=== PATIENT | male | born 1955 | race Hispanic/Latino ===

== ENCOUNTER 2016-10-13 10:13 | Inpatient (IN) | payer MEDICAID ==
--- NOTE | 2016-10-13 11:08 | C.PDOC ---
History Of Present Illness 61 y/o male pmhx anxiety, bipolar disorder, depression, presents to the ED with complains of worsening depression and SI. Pt also reports inability to sleep for several days. Pt denies suicidal plan or any other complaints at this time. Admits to heroin use. Time Seen by Provider: 10/13/16 10:36 Chief Complaint (Nursing): Psychiatric Evaluation History Per: Patient History/Exam Limitations: no limitations Onset/Duration Of Symptoms: Days Current Symptoms Are (Timing): Worse Modifying Factor(s): Narcotics Severity: Moderate Associated Symptoms: Depression, Suicidal Thoughts. denies: Suicidal Plan Involuntary Hold By: None Recent travel outside of the [place]: No Past Medical History Reviewed: Historical Data, Nursing Documentation, Vital Signs - Medical History PMH: Anxiety, Bipolar Disorder, Depression Denies: HIV (denies but is in the chart) - [facility] Procedures DETOXIFICATION SERVICES FOR SUBSTANCE ABUSE TREATMENT (09/16/16) GROUP PLASTICS PATTERNMAKER FOR SUBSTANCE ABUSE TREATMENT, PSYCHOEDUCATION (05/08/16) GROUP PSYCHOTHERAPY (05/31/15) INDIV PLASTICS PATTERNMAKER FOR SUBSTANCE ABUSE, COGNITIVE BEHAVIORAL (09/16/16) INDIV PSYCHOTHERAPY FOR SUBSTANCE ABUSE TREATMENT, SUPPORT (09/16/16) MEDS MGMT FOR SUBSTANCE ABUSE TREATMENT, METHADONE MAINT (07/08/15) Family History: States: Unknown Family Hx - Social History Hx Alcohol Use: Yes Hx Substance Use: Yes - Immunization History Hx Tetanus Toxoid Vaccination: No Hx Influenza Vaccination: No Hx Pneumococcal Vaccination: No Review Of Systems Except As Marked, All Systems Reviewed And Found Negative. Constitutional: Negative for: Fever Psych: Positive for: Depression, Suicidal ideation Physical Exam - Physical Exam Appears: Non-toxic, No Acute Distress Skin: Warm, Dry, No Rash Head: Atraumatic, Normacephalic Eye(s): bilateral: Normal Inspection Neck: Normal ROM Chest: Symmetrical Cardiovascular: Rhythm Regular, No Murmur Respiratory: Normal Breath Sounds, No Rales, No Rhonchi, No Wheezing Extremity: Bilateral: Atraumatic, Normal Color And Temperature, Normal ROM Neurological/Psych: Oriented x3, Normal Speech, Other (depressed affect) ED Course And Treatment - Laboratory Results Result Diagrams: 10/13/16 11:25 10/13/16 11:25 Lab Interpretation: No Acute Changes Medical Decision Making Medical Decision Making: Plan: * labs * UA * CRISIS evaluation Progress: Labs ordered and reviewed. In my clinical judgment patient is medically cleared and stable for psychiatric admission. cemetery workers supervisor contacted for evaluation. As per CW patient is to be admitted. Disposition - Disposition Disposition: HOSPITALIZED Disposition Time: 12:51 Condition: STABLE - POA Present On Arrival: None - Clinical Impression Clinical Impression: Major depressive disorder Decision To Admit - Pt Status Changed To: Hospital Disposition Of: Inpatient - Admit Certification Admit to Inpatient:: After my assessment, the patient will require hospitalization for at least two midnights. This is because of the severity of symptoms shown, intensity of services needed, and/or the medical risk in this patient being treated as an outpatient. - InPatient: Physician Admission Certification: I certify that this patient requires 2 or more midnights of care for the following reason:: Patient to be admitted to psych floor under Dr Schaffer service for MDD - . Bed Request Type: Psychiatry Admitting Physician: Rachelle Schaffer Patient Diagnosis: Major depressive disorder
[2016-10-13 11:31] LABS: BASO # 0.1 K/uL (0.0-0.2); BASO % 0.9 % (0.0-2.0); EOS # 0.3 K/uL (0.0-0.7); EOS % 4.9 % (0.0-4.0); HEMATOCRIT 42.7 % (35.0-51.0); LYMPH # 1.7 K/uL (1.0-4.3); LYMPH % 25.3 % (20.0-40.0); MEAN CORPUSCULAR HEMOGLOBIN 29.2 pg (27.0-31.0); MEAN PLATELET VOLUME 6.9 fL (7.2-11.7); MONO # 0.5 K/uL (0.0-0.8); MONO % 8.3 % (0.0-10.0); RED CELL DISTRIBUTION WIDTH 15.3 % (11.5-14.5); WHITE BLOOD COUNT 6.6 K/uL (4.8-10.8)
[2016-10-13 11:39] LABS: MEAN CELL VOLUME 86.1 fL (80.0-94.0)
[2016-10-13 11:44] LABS: CHLORIDE 100 mmol/L (98-107)
[2016-10-13 11:45] LABS: POTASSIUM 3.7 mmol/L (3.6-5.2); SODIUM 141 mmol/L (132-148)
[2016-10-13 11:47] LABS: ALB/GLOB RATIO 1.4 (1.0-2.1); ALKALINE PHOSPHATASE 75 U/L (38-126); AST/SGOT 21 U/L (17-59); BILIRUBIN,TOTAL 0.4 mg/dL (0.2-1.3); BLOOD UREA NITROGEN 17 mg/dL (9-20); CARBON DIOXIDE 29 mmol/L (22-30); GFR AFRICAN-AMERICAN > 60; TOTAL PROTEIN 6.9 g/dL (6.3-8.3)
[2016-10-13 11:48] LABS: ALCOHOL SERUM < 10 mg/dl (0-10); ALT/SGPT 31 U/L (21-72); CALCIUM 8.7 mg/dl (8.6-10.4); GLUCOSE,RANDOM 96 mg/dL (75-110)
[2016-10-13 11:48] LABS: RBC URINE 61 /hpf (0-3); URINE BILIRUBIN NEGATIVE (NEGATIVE); URINE BLOOD 3+ (NEGATIVE); URINE COLOR Yellow (YELLOW); URINE GLUCOSE (UA) NORMAL (Normal); URINE KETONE NEGATIVE (NEGATIVE); URINE LEUKOCYTE ESTERASE NEG Leu/uL (Negative); URINE PROTEIN NEGATIVE (NEGATIVE); URINE UROBILINOGEN NORMAL mg/dL (0.2-1.0); WBC URINE 2 /hpf (0-5)
[2016-10-13 12:52] VITALS: O2SAT 96
--- NOTE | 2016-10-13 15:34 | PCM.PSYCH ---
Initial Psychiatric Evaluation - Initial Psychiatric Evaluation Type of Admission: Voluntary Legal Status: Capacity Chief Complaint (in patient's own words): "I just wasn't feeling well" History of Present Illness and Precipitating Events: Pt seen, chart reviewed, case discussed with team. Pt is a 61yo M single, unemployed, lives alone w/ past psychiatric history significant for the MDD w/o psychotic features, KEVIN, etoh use d/o, opiate use d/o, benzodiazepine use d/o. The pt was recently seen at for these issues and was discharged to [facility] for continued outpt treatment for his dependence, however was unable to complete treatment. The pt stated that he didn't feel as if the program was the right program for him and felt that the 30day mediation free was too much for him. The pt during that time was complaining of a lack of sleep, increasing anxiety, and irritability. The pt reportedly relapsed two days ago on 2mg of xanax and used 8mg suboxone that he purchased of the street. He stated that the suboxone helped him sleep but feels that he got very depressed from it and worries he maybe withdrawing from it. He however appears calm but reserved and seems to have a very depressed affect, he appears well kempt and does not look to be suffering any overt signs of withdrawal. The pt currently reports suicidal ideation and denies any homicidal ideation or any auditory or visual hallucinations. Psych: as per HPI PMH:denies other medical condition PSH: denies Hospitalization: multiple for psychiatric problems on record Meds:Lexaprro 10mg QD, Nerontin 300mg TID, Trazodone 100mg qhs, Vistaril 25mg BID Allergies: NKDA FamHx:denies significant family history Social: Denies nicotine and alcohol, admits to using xanax and suboxone. Current Medications: Active Medications Generic Name Dose Route Start Last Admin Trade Name Freq PRN Reason Stop Dose Admin Clonidine HCl 0.1 mg 10/13/16 15:29 Catapres PO Q6 PRN Allergy symptoms Diphenhydramine HCl 50 mg 10/13/16 14:50 Benadryl PO Q6 PRN Extra Pyramidal Symptoms Escitalopram Oxalate 10 mg 10/14/16 10:00 Lexapro PO DAILY MARLA Gabapentin 300 mg 10/13/16 18:00 Neurontin PO TID MARLA Lorazepam 1 mg 10/13/16 15:14 10/13/16 15:19 Ativan PO 1 mg Q6 PRN Administration Agitation Pneumococcal Polyvalent Vaccine 0.5 ml 10/16/16 10:00 Pneumovax 23 Vaccine IM 10/16/16 10:01 .ONCE ONE Trazodone HCl 100 mg 10/13/16 14:49 Desyrel PO HS PRN Sleep Past Psychiatric History - Past Psychiatric History Previous Treatment History: Inpatient Pertinent Medical Hx (Current Medical&Sleep Prob, Allergies): Allergies Allergy/AdvReac Type Severity Reaction Status Date / Time No Known Allergies Allergy Verified 10/13/16 10:28 Hydroxyzine Pamoate [Vistaril] 25 mg PO BID PRN 04/23/16 Escitalopram [Lexapro] 10 mg PO DAILY #0 tab 04/28/16 Gabapentin [Neurontin] 300 mg PO TID #0 cap 04/28/16 traZODone [Desyrel] 100 mg PO HS PRN #0 tab 04/28/16 Review of Systems - Neurological Neurological: UNREMARKABLE - Psychiatric Psychiatric: Abnormal Sleep Pattern, Anxiety, Depression, Irritability. absent : Auditory Hallucinations, Change in Appetite, Hallucinations, Homicidal Ideation, Suicidal Ideation, Visual Hallucinations, Tactile Hallucinations Mental Status Examination - Personal Presentation Personal Presentation: Looks older than stated age - Affect Affect: Depressed - Motor Activity Motor Activity: Calm - Reliability in Providing Information Reliability in Providing Information: Good - Speech Speech: Organized - Mood Mood: Depressed - Formal Thought Process Formal Thought Process: No Impairment - Obsessions/Compulsions Obsessions: No Compulsions: No - Cognitive Functions Orientation: Person, Place, Situation, Time Sensorium: Alert Attention/Concentration: Attentive Abstract Thinking: [place] Estimate of Intelligence: Average Judgement: Intact, as evidence by: Insight regarding need for hospitalization Memory: Recent intact, as evidence by: Ability to recall events of the day, Remote intact, as evidenced by: Ability to recall historical events - Risk Risk: Withdrawal - Limitations Limitations: Living alone DSM 5 DX - DSM 5 DSM 5 Diagnosis: 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 Opiate use disorder severe Opiate withdrawal Sedative/hypnotic use disorder moderate - Recommended/Plan of Treatment Treatment Recommendations and Plan of Treatment: 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
--- NOTE | 2016-10-14 19:14 | PCM.PYCHPN ---
Psychiatric Progress Note - Psychiatric Progress Note Patient seen today, length of contact: 15 min Patient Chief Complaint: I m withdrawing Problems Identified/Issues Discussed: Patient seen and evaluated, chart reviewed and discussed with the nurse. Patient reports depressed mood, poor sleep and poor appetite. He remained isolated and withdrawn. He still reports withdrawal symptoms including bone pains, anxiety, headaches and sweating. However he remained calm and cooperative. He is taking medication and denies any side effects. Supportive therapy and psychoeducation were given Medication Change: Yes (Methadone taper) Medical Record Reviewed: Yes Mental Status Examination - Cognitive Function Orientation: Person, Place, Situation, Time Memory: Intact Attention: WNL Concentration: Poor Association: WNL Fund of Knowledge: Poor - Mood Mood: Depressed - Affect Affect: Depressed - Speech Speech: Soft - Formal Thought Process Formal Thought Process: No Impairment - Suicidal Ideation Suicidal Ideation: No - Homicidal Ideation Homicidal Ideation: No Goal/Treatment Plan - Goal/Treatment Plan Need for Continued Stay: Discharge may exacerbated symptoms, Severe functional impairment Progress Toward Problem(s) and Goals/Treatment Plan: 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
[2016-10-16 07:52] VITALS: RESP 19
[2016-10-16] MEDS ORDERED: Pneumococcal 23-Valent Vaccine IM ONE (10:00)
--- NOTE | 2016-10-17 01:30 | PCM.PYCHPN ---
Psychiatric Progress Note - Psychiatric Progress Note Patient seen today, length of contact: 15 min Patient Chief Complaint: I HURT Problems Identified/Issues Discussed: DEPRESSION SYMPTOM MANAGEMENT Medical Problems: NOTHING ACUTE DSM 5 Symptoms Update: REVIEWED Medication Change: No Medical Record Reviewed: Yes Mental Status Examination - Cognitive Function Orientation: Person, Place, Situation, Time Memory: Intact Attention: WNL Concentration: Poor Association: WNL Fund of Knowledge: WNL - Mood Mood: Depressed, Anxious - Affect Affect: Constricted, Depressed - Speech Speech: Appropriate, Soft - Formal Thought Process Formal Thought Process: No Impairment - Suicidal Ideation Suicidal Ideation: No - Homicidal Ideation Homicidal Ideation: No Goal/Treatment Plan - Goal/Treatment Plan Need for Continued Stay: Severe depression anxiety, Discharge may exacerbated symptoms, Severe functional impairment Progress Toward Problem(s) and Goals/Treatment Plan: MDD OPIATE WITHDRAWAL OPIATE USE DISORDER SEDATIVE-HYPNOTIC USE DISORDER MDD LEXAPRO TRAZODONE NEURONTIN GROUPS CBT SD SUPPORTIVE PSYCHOTHERAPY OPIATE WITHDRAWAL METHADONE TAPER CBT SD SUPPORTIVE PSYCHOTHERAPY OPIATE USE DISORDER CBT SD SEDATIVE-HYPNOTIC USE DISORDER CBT SD PSYCHOEDUCATION Estimated Date of D/C: 10/22/16 - Smoking Cessation Smoking Cessation Initiated: No
--- NOTE | 2016-10-17 01:34 | PCM.PYCHPN ---
Psychiatric Progress Note - Psychiatric Progress Note Patient seen today, length of contact: 15 min Patient Chief Complaint: WHY DID I GET METHADONE FOR ONLY 2 DAYS Problems Identified/Issues Discussed: PAWS Medical Problems: NOTHING ACUTE Diagnostic Results: REVIEWED DSM 5 Symptoms Update: HOPELESSNESS HELPLESSNESS WORTHLESSNESS Medication Change: No Medical Record Reviewed: Yes Mental Status Examination - Cognitive Function Orientation: Person, Situation, Time Attention: WNL Association: WN Fund of Knowledge: WNL - Mood Mood: Depressed, Anxious - Affect Affect: Constricted, Depressed - Speech Speech: Appropriate, Soft - Formal Thought Process Formal Thought Process: No Impairment - Suicidal Ideation Suicidal Ideation: No - Homicidal Ideation Homicidal Ideation: No Goal/Treatment Plan - Goal/Treatment Plan Need for Continued Stay: Severe depression anxiety, Discharge may exacerbated symptoms, Severe functional impairment Progress Toward Problem(s) and Goals/Treatment Plan: MDD OPIATE WITHDRAWAL OPIATE USE DISORDER SEDATIVE-HYPNOTIC USE DISORDER MDD LEXAPRO TRAZODONE NEURONTIN GROUPS CBT [place] SUPPORTIVE PSYCHOTHERAPY OPIATE WITHDRAWAL METHADONE TAPER CBT [place] SUPPORTIVE PSYCHOTHERAPY OPIATE USE DISORDER CBT OH SEDATIVE-HYPNOTIC USE DISORDER CBT OH PSYCHOEDUCATION Estimated Date of D/C: 10/22/16 - Smoking Cessation Smoking Cessation Initiated: No
--- NOTE | 2016-10-17 15:44 | PCM.PYCHPN ---
Psychiatric Progress Note - Psychiatric Progress Note Patient seen today, length of contact: 15 min Patient Chief Complaint: I m withdrawing Problems Identified/Issues Discussed: Patient seen and evaluated, chart reviewed and discussed with the nurse. Patient reports depressed mood, poor sleep and poor appetite. He remained isolated and withdrawn. He still reports withdrawal symptoms including bone pains, anxiety, headaches and sweating. However he remained calm and cooperative. He is taking medication and denies any side effects. Supportive therapy and psychoeducation were given Medication Change: Yes (increase lexapro) Medical Record Reviewed: Yes Mental Status Examination - Cognitive Function Orientation: Person, Situation, Time Attention: WNL Association: WNL Fund of Knowledge: WN - Mood Mood: Depressed, Anxious - Affect Affect: Constricted, Depressed - Speech Speech: Appropriate, Soft - Formal Thought Process Formal Thought Process: No Impairment - Suicidal Ideation Suicidal Ideation: No - Homicidal Ideation Homicidal Ideation: No Goal/Treatment Plan - Goal/Treatment Plan Need for Continued Stay: Severe depression anxiety, Discharge may exacerbated symptoms, Severe functional impairment Progress Toward Problem(s) and Goals/Treatment Plan: 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
[2016-10-18 07:58] VITALS: BP 112/74; PULSE 64; TEMP 98.2
--- NOTE | 2016-10-18 09:31 | PCM.PYCHDC ---
Mental Status Examination - Mental Status Examination Orientation: Person, Place, Situation, Time Memory: Intact Mood: Neutral Affect: Constricted Speech: Soft Attention: WNL Concentration: WNL Association: WNL Fund of Knowledge: WNL Formal Thought Process: No Impairment Description of patient's judgement and insight: good, fair Psychotic Thoughts and Behaviors: Denies any AVH Suicidal Ideation: No Current Homicidal Ideation?: No Discharge Summary - Discharge Note Consultations:: List each consultation separately and include: 1. Reason for request. 2. Findings. 3. Follow-up Summary of Hospital Course include:: 1. Description of specific treatment plan utilized for patients during their course of treatmen. 2. Summarize the time- course for resolution of acute symptoms and/or regressed behaviors. 3. Describe issues identified and worked on during hospitalization. 4. Describe medication utilized. 5. Describe medical problems identified and treated. 6. Reassessment of suicide risk Summary of Hospital Course: Pt seen, chart reviewed, case discussed with team. Pt is a 61yo M single, unemployed, lives alone w/ past psychiatric history significant for the MDD w/o psychotic features, KEVIN, etoh use d/o, opiate use d/o, benzodiazepine use d/o. The pt was recently seen at for these issues and was discharged to [facility] for continued outpt treatment for his dependence, however was unable to complete treatment. The pt stated that he didn't feel as if the program was the right program for him and felt that the 30day mediation free was too much for him. The pt during that time was complaining of a lack of sleep, increasing anxiety, and irritability. The pt reportedly relapsed two days ago on 2mg of xanax and used 8mg suboxone that he purchased of the street. He stated that the suboxone helped him sleep but feels that he got very depressed from it and worries he maybe withdrawing from it. He however appears calm but reserved and seems to have a very depressed affect, he appears well kempt and does not look to be suffering any overt signs of withdrawal. The pt currently reports suicidal ideation and denies any homicidal ideation or any auditory or visual hallucinations. Psych: as per HPI PMH:denies other medical condition PSH: denies Hospitalization: multiple for psychiatric problems on record Meds:Lexaprro 10mg QD, Nerontin 300mg TID, Trazodone 100mg qhs, Vistaril 25mg BID Allergies: NKDA FamHx:denies significant family history Social: Denies nicotine and alcohol, admits to using xanax and suboxone. 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 -CBT -group and supportive therapy -Lexapro 10mg PO QD -Trazodone 100mg PO qhs -Neurontin 300 mg by mouth 3 times a day Opiate withdrawal -CBT -group and supportive therapy -Methadone taper from 10 mg Opiate use disorder severe -CBT -[place] for abstinence -group and supportive therapy Sedative/hypnotic use disorder moderate -CBT -[place] for abstinence -group and supportive therapy Prescriptions/Medication Reconciliation: DiphenhydrAMINE [Benadryl] 50 mg PO HS #30 cap traZODone [Desyrel] 100 mg PO HS PRN #30 tab PRN Reason: Insomnia Escitalopram [Lexapro] 20 mg PO DAILY #30 tab Gabapentin [Neurontin] 300 mg PO TID #90 cap
== END 2016-10-18 12:25 | disposition home or self-care (01) | DRG 430 ==
LOC: C.ER 10:13 → C.5E 12:50
PROVIDERS: ADMIT Psychiatry & Neurology Psychiatry; ATTEND Psychiatry & Neurology Psychiatry
PROC: GZ3ZZZZ Medication Management (ICD-10-PCS; principal; 2016-10-13)
PROC: GZHZZZZ Group Psychotherapy (ICD-10-PCS; 2016-10-13)
PROC: HZ81ZZZ Medication Management for Substance Abuse Treatment, Methadone Maintenance (ICD-10-PCS; 2016-10-13)
PROC: GZ56ZZZ Individual Psychotherapy, Supportive (ICD-10-PCS; 2016-10-13)
PROC: HZ46ZZZ Group Counseling for Substance Abuse Treatment, Psychoeducation (ICD-10-PCS; 2016-10-13)
PROC: HZ59ZZZ Individual Psychotherapy for Substance Abuse Treatment, Supportive (ICD-10-PCS; 2016-10-13)
DX: F33.2 Major depressive disorder, recurrent severe without psychotic features (principal); F11.23 Opioid dependence with withdrawal; F13.10 Sedative, hypnotic or anxiolytic abuse, uncomplicated; F10.10 Alcohol abuse, uncomplicated; F41.1 Generalized anxiety disorder

== ENCOUNTER 2017-08-30 16:46 | Inpatient (IN) | payer MEDICAID ==
--- NOTE | 2017-08-30 18:11 | C.PDOC ---
History Of Present Illness <Melony Hernández - Last Filed: 08/30/17 18:49> <Vanessa You - Last Filed: 08/30/17 20:30> 62 y/o male who is on suboxone presents to ED requesting detox from xanax. Patient states he last used earlier today. Denies any withdrawal symptoms or any physical complaints at this time. No h/o seizures. (Melony Hernández) History Per: Patient History/Exam Limitations: no limitations Onset/Duration Of Symptoms: Days Current Symptoms Are (Timing): Still Present Suicide/Self Injury Attempted (Context): None Modifying Factor(s): Narcotics <Melony Hernández - Last Filed: 08/30/17 18:49> <Vanessa You - Last Filed: 08/30/17 20:30> Time Seen by Provider: 08/30/17 17:43 Chief Complaint (Nursing): Substance Abuse Past Medical History Reviewed: Historical Data, Nursing Documentation, Vital Signs - Medical History PMH: Anxiety, Bipolar Disorder, Depression Denies: HIV (denies but in the chart) Surgical History: No Surg Hx Family History: States: No Known Family Hx - Social History Hx Alcohol Use: No Hx Substance Use: Yes - Immunization History Hx Tetanus Toxoid Vaccination: No Hx Influenza Vaccination: No Hx Pneumococcal Vaccination: No <Melony Hernández - Last Filed: 08/30/17 18:49> Vital Signs: Last Vital Signs Temp 98.1 F 08/30/17 16:53 Pulse 95 H 08/30/17 16:53 Resp 18 08/30/17 16:53 BP 117/86 08/30/17 16:53 Pulse Ox 96 08/30/17 18:51 - [facility] Procedures DETOXIFICATION SERVICES FOR SUBSTANCE ABUSE TREATMENT (09/16/16) GROUP DATA ENTRY PROCESSOR FOR SUBSTANCE ABUSE TREATMENT, PSYCHOEDUCATION (10/13/16) GROUP PSYCHOTHERAPY (10/13/16) INDIV DATA ENTRY PROCESSOR FOR SUBSTANCE ABUSE, COGNITIVE BEHAVIORAL (09/16/16) INDIV PSYCHOTHERAPY FOR SUBSTANCE ABUSE TREATMENT, SUPPORT (10/13/16) INDIVIDUAL PSYCHOTHERAPY, SUPPORTIVE (10/13/16) MEDICATION MANAGEMENT (10/13/16) MEDS MGMT FOR SUBSTANCE ABUSE TREATMENT, METHADONE MAINT (10/13/16) Review Of Systems Constitutional: Negative for: Fever, Chills Cardiovascular: Negative for: Chest Pain Respiratory: Negative for: Shortness of Breath Gastrointestinal: Negative for: Nausea, Vomiting Psych: Negative for: Suicidal ideation, Withdrawal <Melony Hernández - Last Filed: 08/30/17 18:49> Physical Exam - Physical Exam Appears: Non-toxic, No Acute Distress Skin: Warm, Dry, No Rash Head: Atraumatic, Normacephalic Eye(s): bilateral: Normal Inspection, EOMI Nose: Normal Oral Mucosa: Moist Neck: Normal ROM, Supple Chest: Symmetrical Cardiovascular: Rhythm Regular Respiratory: Normal Breath Sounds, No Accessory Muscle Use, No Rales, No Rhonchi , No Wheezing Gastrointestinal/Abdominal: Soft, No Tenderness, No Guarding, No Rebound Neurological/Psych: Oriented x3 Gait: Steady <Melony Hernández Last Filed: 08/30/17 18:49> ED Course And Treatment - Laboratory Results Result Diagrams: 08/30/17 18:34 O2 Sat by Pulse Oximetry: 96 (RA) Pulse Ox Interpretation: Normal Progress Note: Blood work, UA ordered Pending crisis eval. Patient will be turned over to Dr. You pending dispo <Melony Hernández - Last Filed: 08/30/17 18:49> - Laboratory Results Result Diagrams: 08/30/17 18:34 08/30/17 18:34 <Vanessa You - Last Filed: 08/30/17 20:30> Disposition - Disposition Disposition Time: 18:51 <Melony Hernández Last Filed: 08/30/17 18:49> Discussed With : Tiara Espana Comment: accepted the pt on his service and took over the care at 8:30 PM Doctor Will See Patient In The: Hospital Counseled Patient/Family Regarding: Studies Performed <Vanessa You - Last Filed: 08/30/17 20:30> - Disposition Disposition: HOSPITALIZED Condition: FAIR Forms: [facility] (Sinhala) - Clinical Impression Clinical Impression: Benzodiazepine abuse - PA / CLIENT HR MANAGER / Resident Statement MD/DO has reviewed & agrees with the documentation as recorded. - Scribe Statement The provider has reviewed the documentation as recorded by the Scribe <Melony Hernández - Last Filed: 08/30/17 18:49> <Vanessa You Last Filed: 08/30/17 20:30> - Scribe Statement Micah Romero All medical record entries made by the Scribe were at my direction and personally dictated by me. I have reviewed the chart and agree that the record accurately reflects my personal performance of the history, physical exam, medical decision making, and the department course for this patient. I have also personally directed, reviewed, and agree with the discharge instructions and disposition. (Melony Hernández) Decision To Admit <Melony Hernández - Last Filed: 08/30/17 18:49> - Pt Status Changed To: Hospital Disposition Of: Inpatient - Admit Certification Admit to Inpatient:: After my assessment, the patient will require hospitalization for at least two midnights. This is because of the severity of symptoms shown, intensity of services needed, and/or the medical risk in this patient being treated as an outpatient. - InPatient: Physician Admission Certification: I certify that this patient requires 2 or more midnights of care for the following reason:: After my assessment, the patient will require hospitalization for at least two midnights. This is because of the severity of symptoms shown, intensity of services needed, and/or the medical risk in this patient being treated as an outpatient. - . Bed Request Type: Detox Admitting Physician: Tiara Espana <Vanessa You - Last Filed: 08/30/17 20:30> - . Patient Diagnosis: Benzodiazepine abuse
[2017-08-30 18:46] LABS: BASO # 0.1 K/uL (0.0-0.2); BASO % 0.8 % (0.0-2.0); EOS # 0.2 K/uL (0.0-0.7); EOS % 2.4 % (0.0-4.0); HEMOGLOBIN 14.9 g/dL (12.0-18.0); LYMPH # 2.2 K/uL (1.0-4.3); LYMPH % 26.5 % (20.0-40.0); MEAN CELL VOLUME 84.1 fL (80.0-94.0); MEAN CORPUSCULAR HEMOGLOBIN 29.7 pg (27.0-31.0); MEAN CORPUSCULAR HGB CONC 35.3 g/dL (33.0-37.0); MEAN PLATELET VOLUME 7.1 fL (7.2-11.7); MONO # 0.7 K/uL (0.0-0.8); NEUT # 5.1 K/uL (1.8-7.0); NEUT % 62.3 % (50.0-75.0); NRBC % 0.1 % (0.0-2.0); RBC 5.02 Mil/uL (4.40-5.90); RED CELL DISTRIBUTION WIDTH 14.6 % (11.5-14.5); URINE BILIRUBIN NEGATIVE (NEGATIVE); URINE BLOOD NEGATIVE (NEGATIVE); URINE CLARITY Clear (Clear); URINE COLOR Yellow (YELLOW); URINE GLUCOSE (UA) NORMAL (Normal); URINE LEUKOCYTE ESTERASE NEG Leu/uL (Negative); URINE NITRATE NEGATIVE (NEGATIVE); URINE PROTEIN NEGATIVE (NEGATIVE); URINE UROBILINOGEN NORMAL mg/dL (0.2-1.0); WHITE BLOOD COUNT 8.3 K/uL (4.8-10.8)
[2017-08-30 18:52] LABS: ALB/GLOB RATIO 1.4 (1.0-2.1); ALBUMIN 4.3 g/dL (3.5-5.0); ALT/SGPT 26 U/L (21-72); AST/SGOT 24 U/L (17-59); BLOOD UREA NITROGEN 20 mg/dL (9-20); CALCIUM 9.3 mg/dl (8.6-10.4); GFR AFRICAN-AMERICAN > 60; GFR NON-AFRICAN AMERICAN > 60
[2017-08-30 19:02] LABS: BARBITURATES, UR NEGATIVE (NEGATIVE); OPIATES, UR NEGATIVE (NEGATIVE); PHENCYCLIDINE, UR NEGATIVE (NEGATIVE)
[2017-08-30 19:49] LABS: BENZODIAZEPINES, UR POSITIVE (NEGATIVE)
--- NOTE | 2017-08-30 21:05 | PCM.BM ---
<AlexeyLucy - Last Filed: 08/30/17 21:04> Treatment Plan Problems - Problems identified on initial assessmt Potential for benzo withdrawal Date Initiated: 08/30/17 Time Initiated: 21:05 Assessment reference: NA Status: Active Priority: 1 Treatment assets and liabiliti Patient Assests: ADL independent, negotiates basic needs, cognitively intact Patient Liabilities: substance abuse (benzo) - Milieu Protocol Maintain good personal hygiene: daily Encourage regular showers, daily Remind patient to perform daily oral care, daily Assist patient to perform ADL's Conduct patient checks and document Observation sheet: Q15 minutes Maintain personal safety: every shift Educate patient to report safety concerns to staff, every shift Monitor environment for contraband/sharps Medication safety: Monitor for expected outcome, potential side effects: every shift, Assess barriers to learning: every shift, Assess readiness for medication education: every shift <Suma Washington - Last Filed: 08/31/17 11:38> Family Contact Family involvement: Patient does not wish Family/SO involvement - Goals for Treatment Patient goals for treatment: Complete detox and return to tx. at Suboxone program in [facility]. Discharge/Continuing Care - Education Needs Education Needs: Patient Medication, Patient Diagnosis/Disease Process, Patient Coping Skills, Patient Anger Management skills, Patient Placement options, Patient Community resources, Patient Other (coping with grief) - Discharge Discharge Criteria: No longer exhibiting s/s of withdrawal, Reduction of target symptoms Discharge to:: Home, With Family - Treatment Team Participation Patient/Family/SO Statement: 08/31/17 11:48 "I already have a program I go to...I just gotta get off the benzos." Discussed with Family/SO: No Was Patient/Family/SO present at Treatment Team Meeting: Yes <Trip Clark - Last Filed: 08/31/17 12:03> - Diagnosis (1) Benzodiazepine abuse, continuous Status: Acute Interventions: 08/31/17 12:03 * Assess 7x/week regarding severity of withdrawal * Educate regarding risks, benefits, side effects and alternatives of medications * Use Motivational Interviewing for abstinence * Use CBT for relapse prevention * Medication management for withdrawal symptoms * Encourage medication assisted treatment * (2) Major depressive disorder Status: Acute Interventions: 08/31/17 12:03 * Assess/adjust medications daily and /or as needed * See patient on an individual basis 7x/week to assess symptoms of depression * Monitor for side effects & effectiveness of medications *
[2017-08-31] MEDS: Multiple Vitamins Tab PO SCH (09:05)
[2017-08-31] MEDS: Buprenorphine Hydrochloride 8 mg SL SCH ×2 (10:22→19:23)
--- NOTE | 2017-08-31 11:18 | PCM.PSYCH ---
Initial Psychiatric Evaluation - Initial Psychiatric Evaluation Type of Admission: Voluntary Legal Status: Capacity Chief Complaint (in patient's own words): "I couldn't stop Xanax" History of Present Illness and Precipitating Events: The patient is seen and case is discussed with team and his chart is reviewed. The patient is well known to the engineering writer from his previous admissions to detox and psych here. The patient admits to using up to 3, sometimes more Xanax tablets, various doses , every day. The substance abuse program in [facility] recommended he get detox in order to stay in the program. He said he couldn't do it on his own and came to detox. His doctor at the program however was okay with his Xanax use (?) He is now on Suboxone maintenance 16 mg per day, which is confirmed by the engineering writer via [facility]. He denies all other drug use. He denies alcohol use. He has mild anxiety but no depression or suicidal ideation. Past psych history: He was diagnosed with major depression and at one point bipolar disorder. He has has several admissions and is currently on Neurontin and trazodone. 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 He relapsed after he quit methadone> Medical history: Hepatitis C. Shoulder injury Social history: He is and has 2 kids aged 25 and 34 and he lives with his sister in [place], he is unemployed and on welfare Family psych history: None known Current Medications: Active Medications Generic Name Dose Route Start Last Admin Trade Name Freq PRN Reason Stop Dose Admin Buprenorphine HCl 8 mg 08/31/17 10:08/31/17 10:22 Subutex SL 8 mg BID MARLA Administration Chlordiazepoxide 25 mg 08/30/17 21:30 08/31/17 09:05 Librium PO 09/02/17 21:29 25 mg TID MARLA Administration Taper Clonidine HCl 0.1 mg 08/30/17 20:29 Catapres PO Q4H PRN Symptoms of alcohol withdrawl Folic Acid 1 mg 08/31/17 10:00 08/31/17 09:05 Folic Acid PO 1 mg DAILY MARLA Administration Gabapentin 300 mg 08/31/17 10:00 08/31/17 10:22 Neurontin PO 300 mg BID MARLA Administration Multivitamins 1 tab 08/31/17 10:00 08/31/17 09:05 Hexavitamin PO 1 tab DAILY MARLA Administration Trazodone HCl 100 mg 08/31/17 09:57 Desyrel PO HS PRN Insomnia Past Psychiatric History - Past Psychiatric History Previous Treatment History: Inpatient Pertinent Medical Hx (Current Medical&Sleep Prob, Allergies): Allergies Allergy/AdvReac Type Severity Reaction Status Date / Time No Known Allergies Allergy Verified 08/30/17 16:58 traZODone [Desyrel] 100 mg PO HS PRN #0 tab 04/28/16 Escitalopram [Lexapro] 20 mg PO DAILY #30 tab 10/18/16 Gabapentin [Neurontin] 300 mg PO TID #90 cap 10/18/16 Review of Systems - Psychiatric Psychiatric: Abnormal Sleep Pattern, Anxiety, Difficulty Concentrating. absent : Homicidal Ideation, Suicidal Ideation Mental Status Examination - Personal Presentation Personal Presentation: Looks stated age - Affect Affect: Constricted - Motor Activity Motor Activity: Calm - Reliability in Providing Information Reliability in Providing Information: Good - Speech Speech: Organized - Mood Mood: Anxious - Formal Thought Process Formal Thought Process: No Impairment - Cognitive Functions Orientation: Person, Place, Situation, Time Sensorium: Alert Attention/Concentration: Attentive Estimate of Intelligence: Average Judgement: Intact, as evidence by: Insight regarding need for hospitalization Memory: Recent intact, as evidence by: Ability to recall events of the day, Remote intact, as evidenced by: Abilit to recall sig. 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 Attend groups and activities Supportive therapy and psychoeducation [place] for abstinence CBT for relapse prevention Encourage MAT Refer to rehab or IOP, and self-help groups Smoking cessation with [place] Nicotine patch 34 min Projected ELOS: 3-4 days Prognosis: good
[2017-09-01] MEDS: Buprenorphine Hydrochloride 8 mg SL SCH ×2 (09:13→18:00)
[2017-09-01] MEDS: Multiple Vitamins Tab PO SCH (09:13)
--- NOTE | 2017-09-01 14:48 | PCM.PYCHPN ---
Psychiatric Progress Note - Psychiatric Progress Note Patient seen today, length of contact: 15 min Patient Chief Complaint: "So far so good" Problems Identified/Issues Discussed: The pt is seen, chart reviewed, case discussed with staff. The pt is compliant with medications and reports no side-effects. Symptoms are improving but needs more time to stabilize. After care discussed, support and psychoeducation given. Medication Change: Yes (detox changes daily) Medical Record Reviewed: Yes Mental Status Examination - Cognitive Function Orientation: Person, Place, Situation, Time Memory: Intact Attention: WNL Concentration: Poor Association: WNL Fund of Knowledge: WNL - Mood Mood: Anxious - Affect Affect: Constricted - Speech Speech: Slurred (baseline) - Formal Thought Process Formal Thought Process: No Impairment - Suicidal Ideation Suicidal Ideation: No - Homicidal Ideation Homicidal Ideation: No Goal/Treatment Plan - Goal/Treatment Plan Need for Continued Stay: Discharge may exacerbated symptoms, Severe functional impairment Progress Toward Problem(s) and Goals/Treatment Plan: Librium detox Gabapentin for augmentation As needed medications All risks, benefits and alternatives of the meds discussed, and the pt agreed and understood. Attend groups and activities Supportive therapy and psychoeducation [place] for abstinence CBT for relapse prevention Encourage MAT Refer to rehab or IOP, and self-help groups Smoking cessation with [place] Nicotine patch Estimated Date of D/C: 09/04/17
[2017-09-02] MEDS: Multiple Vitamins Tab PO SCH (09:56)
[2017-09-02] MEDS: Buprenorphine Hydrochloride 8 mg SL SCH ×2 (09:56→17:34)
--- NOTE | 2017-09-02 13:24 | PCM.PYCHPN ---
Psychiatric Progress Note - Psychiatric Progress Note Patient seen today, length of contact: 15 min Patient Chief Complaint: "OK" Problems Identified/Issues Discussed: The pt is seen, chart reviewed, case discussed with staff. Support given, CBT and NV used briefly No new symptoms reported, improving slowly and needs more time No SEs from medications, risks discussed. After care discussed - wants suboxone in [facility] now Medication Change: Yes (detox changes daily) Medical Record Reviewed: Yes Mental Status Examination - Cognitive Function Orientation: Person, Place, Situation, Time Memory: Intact Attention: WNL Concentration: Poor Association: WNL Fund of Knowledge: WNL - Mood Mood: Anxious - Affect Affect: Constricted - Speech Speech: Slurred (baseline) - Formal Thought Process Formal Thought Process: No Impairment - Suicidal Ideation Suicidal Ideation: No - Homicidal Ideation Homicidal Ideation: No Goal/Treatment Plan - Goal/Treatment Plan Need for Continued Stay: Discharge may exacerbated symptoms, Severe functional impairment Progress Toward Problem(s) and Goals/Treatment Plan: Librium detox Gabapentin for augmentation As needed medications All risks, benefits and alternatives of the meds discussed, and the pt agreed and understood. Attend groups and activities Supportive therapy and psychoeducation [place] for abstinence CBT for relapse prevention Encourage MAT Refer to rehab or IOP, and self-help groups Smoking cessation with [place] Nicotine patch Estimated Date of D/C: 09/04/17
[2017-09-03] MEDS: Multiple Vitamins Tab PO SCH (09:15)
[2017-09-03] MEDS: Buprenorphine Hydrochloride 8 mg SL SCH ×2 (09:17→17:13)
--- NOTE | 2017-09-03 13:32 | PCM.PYCHPN ---
Psychiatric Progress Note - Psychiatric Progress Note Patient seen today, length of contact: 15 min Patient Chief Complaint: "Nervous" Problems Identified/Issues Discussed: The pt is seen, chart reviewed, case discussed with staff. The pt is compliant with medications and reports no side-effects. Symptoms are improving but needs more time to stabilize. After care discussed, support and psychoeducation given. More stable and optimistic Medication Change: Yes (detox changes daily) Medical Record Reviewed: Yes Mental Status Examination - Cognitive Function Orientation: Person, Place, Situation, Time Memory: Intact Attention: WNL Concentration: Poor Association: WNL Fund of Knowledge: WNL - Mood Mood: Anxious - Affect Affect: Constricted - Speech Speech: Slurred (baseline) - Formal Thought Process Formal Thought Process: No Impairment - Suicidal Ideation Suicidal Ideation: No - Homicidal Ideation Homicidal Ideation: No Goal/Treatment Plan - Goal/Treatment Plan Need for Continued Stay: Discharge may exacerbated symptoms, Severe functional impairment Progress Toward Problem(s) and Goals/Treatment Plan: Librium detox Gabapentin for augmentation As needed medications All risks, benefits and alternatives of the meds discussed, and the pt agreed and understood. Attend groups and activities Supportive therapy and psychoeducation [place] for abstinence CBT for relapse prevention Encourage MAT Refer to rehab or IOP, and self-help groups Smoking cessation with [place] Nicotine patch Estimated Date of D/C: 09/04/17
[2017-09-04 08:40] VITALS: RESP 18; TEMP 98.3; O2SAT 98
--- NOTE | 2017-09-04 08:45 | PCM.PYCHDC ---
Mental Status Examination - Mental Status Examination Orientation: Person Discharge Summary - Discharge Note Consultations:: List each consultation separately and include: 1. Reason for request. 2. Findings. 3. Follow-up Summary of Hospital Course include:: 1. Description of specific treatment plan utilized for patients during their course of treatmen. 2. Summarize the time- course for resolution of acute symptoms and/or regressed behaviors. 3. Describe issues identified and worked on during hospitalization. 4. Describe medication utilized. 5. Describe medical problems identified and treated. 6. Reassessment of suicide risk Summary of Hospital Course: The patient is seen and case is discussed with team and his chart is reviewed. The patient is well known to the internal communications writer from his previous admissions to detox and psych here. The patient admits to using up to 3, sometimes more Xanax tablets, various doses , every day. The substance abuse program in [facility] recommended he get detox in order to stay in the program. He said he couldn't do it on his own and came to detox. His doctor at the program however was okay with his Xanax use (?) He is now on Suboxone maintenance 16 mg per day, which is confirmed by the internal communications writer via [facility]. He denies all other drug use. He denies alcohol use. He has mild anxiety but no depression or suicidal ideation. Past psych history: He was diagnosed with major depression and at one point bipolar disorder. He has has several admissions and is currently on Neurontin and trazodone. 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 He relapsed after he quit methadone> Medical history: Hepatitis C. Shoulder injury Social history: He is and has 2 kids aged 25 and 34 and he lives with his sister in [place], he is unemployed and on welfare Family psych history: None known He did not want rx He will return to his program in [facility] but until he starts his SBX and psych tx at [facility] - Diagnosis (1) Benzodiazepine abuse, continuous Current Visit: No Status: Acute (2) Major depressive disorder Current Visit: No Status: Acute - Final Diagnosis (DSM 5) Condition upon Discharge: FAIR Disposition: HOME/ ROUTINE Follow-up Treatment Plan: Librium detox Gabapentin for augmentation As needed medications All risks, benefits and alternatives of the meds discussed, and the pt agreed and understood. Attend groups and activities Supportive therapy and psychoeducation [place] for abstinence CBT for relapse prevention Encourage MAT Refer to rehab or IOP, and self-help groups Smoking cessation with [place] Nicotine patch
[2017-09-04] MEDS: Buprenorphine Hydrochloride 8 mg SL SCH (09:15)
[2017-09-04] MEDS: Multiple Vitamins Tab PO SCH (09:15)
[2017-09-04 13:55] VITALS: BP 128/78; PULSE 68
== END 2017-09-04 14:10 | disposition home or self-care (01) | DRG 745 ==
LOC: C.ER 16:46 → C.7D 20:28
PROVIDERS: ADMIT Psychiatry & Neurology Psychiatry; ATTEND Psychiatry & Neurology Psychiatry
PROC: HZ2ZZZZ Detoxification Services for Substance Abuse Treatment (ICD-10-PCS; principal; 2017-08-30)
PROC: HZ59ZZZ Individual Psychotherapy for Substance Abuse Treatment, Supportive (ICD-10-PCS; 2017-08-30)
PROC: HZ46ZZZ Group Counseling for Substance Abuse Treatment, Psychoeducation (ICD-10-PCS; 2017-08-30)
PROC: GZ3ZZZZ Medication Management (ICD-10-PCS; 2017-08-30)
DX: F13.20 Sedative, hypnotic or anxiolytic dependence, uncomplicated (principal); F11.10 Opioid abuse, uncomplicated; F31.9 Bipolar disorder, unspecified; F41.9 Anxiety disorder, unspecified; F32.9 Major depressive disorder, single episode, unspecified

== ENCOUNTER 2018-01-10 22:09 | Inpatient (IN) | payer MEDICAID ==
--- NOTE | 2018-01-10 22:45 | C.PDOC ---
History Of Present Illness 62 year old male presents to the ER as a prescreen for detox from xanax. Patient states he usually takes 6mg a day but only took 1mg today and feels like he might be in withdrawal. When asked what symptoms he was having patient said he felt "strange". Denies palpiations, fever, chills, or other complaints. Time Seen by Provider: 01/10/18 22:40 Chief Complaint (Nursing): Substance Abuse History Per: Patient History/Exam Limitations: no limitations Onset/Duration Of Symptoms: Days Current Symptoms Are (Timing): Still Present Suicide/Self Injury Attempted (Context): None Associated Symptoms: denies: Depression, Suicidal Thoughts Involuntary Hold By: None Recent travel outside of the [place]: No Past Medical History Reviewed: Historical Data, Nursing Documentation, Vital Signs Vital Signs: Last Vital Signs Temp 98 F 01/10/18 22:31 Pulse 55 L 01/10/18 22:31 Resp 20 01/10/18 22:31 BP 105/74 01/10/18 22:31 Pulse Ox 97 01/11/18 00:15 - Medical History PMH: Anxiety, Bipolar Disorder, Depression Denies: HIV (denies but in the chart) - [employer] Procedures DETOXIFICATION SERVICES FOR SUBSTANCE ABUSE TREATMENT (08/30/17) GROUP CEMENT STORAGE WORKER FOR SUBSTANCE ABUSE TREATMENT, PSYCHOEDUCATION (08/30/17) GROUP PSYCHOTHERAPY (10/13/16) INDIV CEMENT STORAGE WORKER FOR SUBSTANCE ABUSE, COGNITIVE BEHAVIORAL (09/16/16) INDIV PSYCHOTHERAPY FOR SUBSTANCE ABUSE TREATMENT, SUPPORT (08/30/17) INDIVIDUAL PSYCHOTHERAPY, SUPPORTIVE (10/13/16) MEDICATION MANAGEMENT (08/30/17) MEDS MGMT FOR SUBSTANCE ABUSE TREATMENT, METHADONE MAINT (10/13/16) Family History: States: Unknown Family Hx - Social History Hx Alcohol Use: No Hx Substance Use: Yes (benzo) - Immunization History Hx Tetanus Toxoid Vaccination: No Hx Influenza Vaccination: No Hx Pneumococcal Vaccination: No Review Of Systems Constitutional: Negative for: Fever, Chills Cardiovascular: Negative for: Chest Pain, Palpitations Respiratory: Negative for: Cough, Shortness of Breath Gastrointestinal: Negative for: Nausea, Vomiting Genitourinary: Negative for: Dysuria, Hematuria Skin: Negative for: Rash Physical Exam - Physical Exam Appears: Non-toxic Skin: Normal Color, Warm, Dry Head: Atraumatic, Normacephalic Eye(s): bilateral: Normal Inspection Oral Mucosa: Moist Neck: Normal, Supple Chest: Symmetrical, No Tenderness Cardiovascular: Rhythm Regular (Bradycardic) Respiratory: Normal Breath Sounds, No Rales, No Rhonchi, No Wheezing Gastrointestinal/Abdominal: Soft, No Tenderness Extremity: Normal ROM (x4) Neurological/Psych: Oriented x3, Normal Speech, Other (No tremors) ED Course And Treatment - Laboratory Results Result Diagrams: 01/10/18 23:45 01/10/18 23:45 Lab Interpretation: No Acute Changes O2 Sat by Pulse Oximetry: 97 (room air) Pulse Ox Interpretation: Normal Progress Note: Blood work and urinalysis ordered. Patient is medically cleared for detox admission. Disposition - Disposition Disposition: HOSPITALIZED Disposition Time: 00:47 Condition: STABLE - POA Present On Arrival: None - Clinical Impression Clinical Impression: Benzodiazepine abuse - Scribe Statement The provider has reviewed the documentation as recorded by the Scribe Poli Mercer All medical record entries made by the Scribe were at my direction and personally dictated by me. I have reviewed the chart and agree that the record accurately reflects my personal performance of the history, physical exam, medical decision making, and the department course for this patient. I have also personally directed, reviewed, and agree with the discharge instructions and disposition.
[2018-01-10 23:50] LABS: BASO % 0.4 % (0.0-2.0); EOS # 0.2 K/uL (0.0-0.7); EOS % 2.6 % (0.0-4.0); LYMPH # 1.7 K/uL (1.0-4.3); LYMPH % 29.9 % (20.0-40.0); MEAN CORPUSCULAR HEMOGLOBIN 29.9 pg (27.0-31.0); MEAN CORPUSCULAR HGB CONC 34.7 g/dL (33.0-37.0); MEAN PLATELET VOLUME 7.4 fL (7.2-11.7); MONO # 0.6 K/uL (0.0-0.8); MONO % 9.5 % (0.0-10.0); NEUT # 3.4 K/uL (1.8-7.0); NEUT % 57.6 % (50.0-75.0); NRBC % 0.1 % (0.0-2.0); RBC 4.15 Mil/uL (4.40-5.90); RED CELL DISTRIBUTION WIDTH 13.9 % (11.5-14.5); WHITE BLOOD COUNT 5.8 K/uL (4.8-10.8)
[2018-01-10 23:53] LABS: HEMOGLOBIN 12.4 g/dL (12.0-18.0); MEAN CELL VOLUME 86.1 fL (80.0-94.0)
[2018-01-10 23:58] LABS: URINE BACTERIA OCC (<OCC); URINE BILIRUBIN NEGATIVE (NEGATIVE); URINE BLOOD NEGATIVE (NEGATIVE); URINE CLARITY Hazy (Clear); URINE GLUCOSE (UA) NORMAL (Normal); URINE LEUKOCYTE ESTERASE NEG Leu/uL (Negative); URINE PROTEIN NEGATIVE (NEGATIVE)
[2018-01-10 23:59] LABS: URINE COLOR YELLOW (YELLOW)
[2018-01-11 00:05] LABS: ALB/GLOB RATIO 1.5 (1.0-2.1); ALBUMIN 3.6 g/dL (3.5-5.0); ALT/SGPT 28 U/L (21-72); AST/SGOT 22 U/L (17-59); BLOOD UREA NITROGEN 14 mg/dL (9-20); CALCIUM 8.6 mg/dl (8.6-10.4); GFR AFRICAN-AMERICAN > 60; GFR NON-AFRICAN AMERICAN > 60
[2018-01-11 00:07] LABS: BARBITURATES, UR NEGATIVE (NEGATIVE); BENZODIAZEPINES, UR POSITIVE (NEGATIVE); OPIATES, UR NEGATIVE (NEGATIVE); PHENCYCLIDINE, UR NEGATIVE (NEGATIVE)
--- NOTE | 2018-01-11 03:58 | PCM.BM ---
<Ewa Murguia - Last Filed: 01/11/18 03:58> Treatment Plan Problems - Problems identified on initial assessmt Benzo Detox Date Initiated: 01/11/18 Time Initiated: 02:20 Assessment reference: NA Status: Active Treatment assets and liabiliti Patient Assests: ADL independent, negotiates basic needs, cognitively intact Patient Liabilities: poor support system, substance abuse (Xanax) - Milieu Protocol Maintain good personal hygiene: daily Encourage regular showers, daily Remind patient to perform daily oral care, every shift Assist patient to perform ADL's Conduct patient checks and document Observation sheet: Q15 minutes Maintain personal safety: every shift Educate patient to report safety concerns to staff, every shift Monitor environment for contraband/sharps Medication safety: Monitor for expected outcome, potential side effects: every shift, Assess barriers to learning: every shift, Assess readiness for medication education: every shift <Trip Clark - Last Filed: 01/11/18 10:15> - Diagnosis (1) Benzodiazepine abuse, continuous Status: Acute Interventions: 01/11/18 10:16 * Assess 7x/week regarding severity of withdrawal * Educate regarding risks, benefits, side effects and alternatives of medications * Use Motivational Interviewing for abstinence * Use CBT for relapse prevention * Medication management for withdrawal symptoms * Encourage medication assisted treatment * <Suma Washington - Last Filed: 01/11/18 11:02> Family Contact Family involvement: Famliy/SO not involved - Goals for Treatment Patient goals for treatment: Complete detox and return to Suboxone maintenance. Discharge/Continuing Care - Education Needs Education Needs: Patient Medication, Patient Diagnosis/Disease Process, Patient Coping Skills, Patient Anger Management skills, Patient Placement options, Patient Community resources - Discharge Discharge Criteria: No longer exhibiting s/s of withdrawal, Reduction of target symptoms Discharge to:: Home - Treatment Team Participation Patient/Family/SO Statement: 01/11/18 11:02 "I wanna continue with my Suboxone doctor..." Discussed with Family/SO: No Was Patient/Family/SO present at Treatment Team Meeting: Yes
--- NOTE | 2018-01-11 08:40 | PCM.PSYCH ---
Initial Psychiatric Evaluation - Initial Psychiatric Evaluation Type of Admission: Voluntary Legal Status: Capacity Chief Complaint (in patient's own words): "I relapsed" History of Present Illness and Precipitating Events: The patient is seen and case is discussed with team and his chart is reviewed. The patient is well known to the group underwriter from his previous admissions to detox and psych here. The patient admits to using up to 4 Xanax tablets, 2 mg, every day. The substance abuse program in [facility] recommended he get detox in order to stay in the program again. He said he couldn't do it on his own and came back to detox. He is now on Suboxone maintenance 16 mg per day, which is confirmed by the group underwriter via [facility]. He admits to using some methadone on Monday but b/c of suboxone he didn't "feel" it. He denies all other drug use. He denies alcohol use. He has mild depression and anxiety but no suicidal ideation. Past psych history: He was diagnosed with major depression and at one point bipolar disorder. He has had several admissions and is currently on Neurontin and trazodone. he gets them from [facility] every other month. 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 He relapsed after he quit methadone. Stable again with suboxone. Yet, he needs to go to an IOP - his program is only once a month Medical history: Hepatitis C. Shoulder injury Social history: He is and has 2 kids aged 25 and 34 and he lives with his sister in [place], he is unemployed and on welfare Family psych history: None known Current Medications: Active Medications Generic Name Dose Route Start Last Admin Trade Name Freq PRN Reason Stop Dose Admin Chlordiazepoxide 25 mg 01/11/18 10:00 Librium PO 01/16/18 09:59 Q6 MARLA Taper Trazodone HCl 100 mg 01/11/18 02:30 01/11/18 02:45 Desyrel PO 100 mg HS MARLA Administration Past Psychiatric History - Past Psychiatric History Previous Treatment History: Inpatient Pertinent Medical Hx (Current Medical&Sleep Prob, Allergies): Allergies Allergy/AdvReac Type Severity Reaction Status Date / Time No Known Allergies Allergy Verified 01/10/18 22:38 No Known Home Med 01/10/18 Review of Systems - Psychiatric Psychiatric: Abnormal Sleep Pattern, Anxiety, Depression, Difficulty Concentrating. absent: Hallucinations, Homicidal Ideation, Hopelessness, Irritability, Paranoia, Suicidal Ideation Mental Status Examination - Personal Presentation Personal Presentation: Looks stated age - Affect Affect: Constricted - Motor Activity Motor Activity: Calm - Reliability in Providing Information Reliability in Providing Information: Good - Speech Speech: Organized - Mood Mood: Depressed, Anxious - Formal Thought Process Formal Thought Process: No Impairment - Cognitive Functions Orientation: Person, Place, Situation, Time Sensorium: Alert Attention/Concentration: Attentive Estimate of Intelligence: Average Judgement: Intact, as evidence by: Insight regarding need for hospitalization Memory: Recent intact, as evidence by: Ability to recall events of the day, Remote intact, as evidenced by: Abilit to recall sig. 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 Attend groups and activities Supportive therapy and psychoeducation [facility] for abstinence CBT for relapse prevention Encourage MAT Refer to rehab or IOP, and self-help groups Smoking cessation with [facility] Nicotine patch 34 min Projected ELOS: 5 days Prognosis: good w treatment Discharge Plan and Discharge Criteria: IOP and MAT - Smoking Cessation Smoking Cessation Initiated: Yes
[2018-01-11] MEDS: Multiple Vitamins Tab PO SCH (09:11)
[2018-01-11] MEDS ORDERED: Buprenorphine Hydrochloride 2 mg SL ONE ×2 (10:08→11:00)
[2018-01-11] MEDS: Buprenorphine Hydrochloride 8 mg SL SCH (17:11)
[2018-01-12] MEDS: Multiple Vitamins Tab PO SCH (09:31)
[2018-01-12] MEDS: Buprenorphine Hydrochloride 8 mg SL SCH ×2 (09:31→17:29)
--- NOTE | 2018-01-12 11:35 | PCM.PYCHPN ---
Psychiatric Progress Note - Psychiatric Progress Note Patient seen today, length of contact: 16 min Patient Chief Complaint: "I am anxious" Problems Identified/Issues Discussed: The pt is seen, chart reviewed, case discussed with staff. The pt is compliant with medications and reports no side-effects. Symptoms are improving but needs more time to stabilize. After care discussed, support and psychoeducation given. Medication Change: Yes (detox changes daily) Medical Record Reviewed: Yes Mental Status Examination - Cognitive Function Orientation: Person, Place, Situation, Time Memory: Intact Attention: WNL Concentration: WNL Association: WNL Fund of Knowledge: WNL - Mood Mood: Depressed, Anxious - Affect Affect: Constricted - Speech Speech: Appropriate - Formal Thought Process Formal Thought Process: No Impairment - Suicidal Ideation Suicidal Ideation: No - Homicidal Ideation Homicidal Ideation: No Goal/Treatment Plan - Goal/Treatment Plan Need for Continued Stay: Discharge may exacerbated symptoms, Severe functional impairment Progress Toward Problem(s) and Goals/Treatment Plan: Librium detox Continue suboxone 8 mg BID - afetr the test dose of 2 mg Gabapentin for augmentation As needed medications All risks, benefits and alternatives of the meds discussed, and the pt agreed and understood. Attend groups and activities Supportive therapy and psychoeducation [facility] for abstinence CBT for relapse prevention Encourage MAT Refer to rehab or IOP, and self-help groups Smoking cessation with [facility] Nicotine patch Estimated Date of D/C: 01/15/18
[2018-01-13] MEDS: Buprenorphine Hydrochloride 8 mg SL SCH (09:20)
[2018-01-13] MEDS: Multiple Vitamins Tab PO SCH (09:20)
[2018-01-13 10:50] VITALS: TEMP 98.1
[2018-01-13 14:31] VITALS: BP 150/89; PULSE 62; RESP 18; O2SAT 98
--- NOTE | 2018-01-13 17:04 | PCM.PYCHDC ---
Discharge Summary - Discharge Note Consultations:: List each consultation separately and include: 1. Reason for request. 2. Findings. 3. Follow-up Summary of Hospital Course include:: 1. Description of specific treatment plan utilized for patients during their course of treatmen. 2. Summarize the time- course for resolution of acute symptoms and/or regressed behaviors. 3. Describe issues identified and worked on during hospitalization. 4. Describe medication utilized. 5. Describe medical problems identified and treated. 6. Reassessment of suicide risk Summary of Hospital Course: The patient is well known to the teletypewriter operator from his previous admissions to detox and psych here. The patient admits to using up to 4 Xanax tablets, 2 mg, every day. The substance abuse program in [facility] recommended he get detox in order to stay in the program again. He said he couldn't do it on his own and came back to detox. He is now on Suboxone maintenance 16 mg per day, which is confirmed by the teletypewriter operator via [facility]. He admits to using some methadone on Monday but b/c of suboxone he didn't "feel" it. He denies all other drug use. He denies alcohol use. He has mild depression and anxiety but no suicidal ideation. Past psych history: He was diagnosed with major depression and at one point bipolar disorder. He has had several admissions and is currently on Neurontin and trazodone. he gets them from [facility] every other month. 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 He relapsed after he quit methadone. Stable again with suboxone. Yet, he needs to go to an [facility] - his program is only once a month Medical history: Hepatitis C. Shoulder injury Social history: He is and has 2 kids aged 25 and 34 and he lives with his sister in [place], he is unemployed and on welfare Patient was admitted and was started on Librium taper for anxiolytics withdrawal symptoms. Patient was also getting Subutex as a maintenance dose. Patient was started on other when necessary medications. Started feeling better with the above treatment. Today patient decided to leave the unit without completion of detox for personal reasons. Patient refused to stay. Education provided about completion of detox. Patient was also educated that in case of any adverse event including relapse, decompensation, overdose or even of the patient, patient will be responsible for his act. Patient understood and agreed with the above but still refuses to stay and left the unit AGAINST MEDICAL ADVICE. At the time of evaluation and discharge, patient was awake alert oriented 3, had no delusions, no auditory or visual hallucinations, no suicidal ideations or homicidal ideations. - Final Diagnosis (DSM 5) Condition upon Discharge: STABLE Disposition: AGAINST MEDICAL ADVICE Follow-up Treatment Plan: Patient wanted to go to harm reduction Center in [facility]. - Smoking Cessation Smoking Cessation Medication prescribed: Yes - Antipsychotic Medications Pt discharged on 2 or more routine antipsychotic medications: No
== END 2018-01-13 16:02 | disposition left against medical advice (07) | DRG 743 ==
LOC: C.ER 22:09 → C.7D 01-11 00:47
PROC: HZ2ZZZZ Detoxification Services for Substance Abuse Treatment (ICD-10-PCS; principal; 2018-01-11)
PROC: HZ52ZZZ Individual Psychotherapy for Substance Abuse Treatment, Cognitive-Behavioral (ICD-10-PCS; 2018-01-11)
PROC: HZ59ZZZ Individual Psychotherapy for Substance Abuse Treatment, Supportive (ICD-10-PCS; 2018-01-11)
PROC: HZ56ZZZ Individual Psychotherapy for Substance Abuse Treatment, Psychoeducation (ICD-10-PCS; 2018-01-11)
PROC: HZ42ZZZ Group Counseling for Substance Abuse Treatment, Cognitive-Behavioral (ICD-10-PCS; 2018-01-11)
PROC: HZ46ZZZ Group Counseling for Substance Abuse Treatment, Psychoeducation (ICD-10-PCS; 2018-01-11)
PROC: GZHZZZZ Group Psychotherapy (ICD-10-PCS; 2018-01-11)
PROC: GZ58ZZZ Individual Psychotherapy, Cognitive-Behavioral (ICD-10-PCS; 2018-01-11)
PROC: GZ56ZZZ Individual Psychotherapy, Supportive (ICD-10-PCS; 2018-01-11)
DX: F13.230 Sedative, hypnotic or anxiolytic dependence with withdrawal, uncomplicated (principal); F31.9 Bipolar disorder, unspecified; F11.23 Opioid dependence with withdrawal; F17.210 Nicotine dependence, cigarettes, uncomplicated; F41.9 Anxiety disorder, unspecified

== ENCOUNTER 2018-05-05 22:31 | Inpatient (IN) | payer MEDICAID ==
[2018-05-05 22:42] VITALS: BMI 27.3
[2018-05-05] MEDS ORDERED: Lidocaine 1% Inj (20ml) INFIL STA (23:24)
[2018-05-05] MEDS ORDERED: Lidocaine Hydrochloride 5 ML INJ ONE (23:30)
[2018-05-05 23:42] LABS: BASO % 0.3 % (0.0-2.0); EOS # 0.3 K/uL (0.0-0.7); EOS % 4.7 % (0.0-4.0); HEMOGLOBIN 13.9 g/dL (12.0-18.0); MEAN CELL VOLUME 86.2 fL (80.0-94.0); MEAN CORPUSCULAR HGB CONC 34.8 g/dL (33.0-37.0); MEAN PLATELET VOLUME 7.4 fL (7.2-11.7); MONO # 0.8 K/uL (0.0-0.8); MONO % 13.7 % (0.0-10.0); NEUT # 3.8 K/uL (1.8-7.0); NEUT % 64.3 % (50.0-75.0); NRBC % 0.1 % (0.0-2.0); RBC 4.62 Mil/uL (4.40-5.90); WHITE BLOOD COUNT 5.9 K/uL (4.8-10.8)
[2018-05-05 23:52] LABS: ALB/GLOB RATIO 1.7 (1.0-2.1); ALBUMIN 3.9 g/dL (3.5-5.0); ALT/SGPT 92 U/L (21-72); AST/SGOT 323 U/L (17-59); BLOOD UREA NITROGEN 30 mg/dL (9-20); CALCIUM 8.5 mg/dl (8.6-10.4); GFR NON-AFRICAN AMERICAN 41
[2018-05-06 00:13] LABS: SQUAMOUS EPITHIAL 2 /hpf (0-5); URINE BACTERIA MANY (<OCC); URINE BILIRUBIN NEGATIVE (NEGATIVE); URINE BLOOD 3+ (NEGATIVE); URINE CLARITY Hazy (Clear); URINE COLOR Amber (YELLOW); URINE GLUCOSE (UA) NORMAL (Normal); URINE LEUKOCYTE ESTERASE NEG Leu/uL (Negative); URINE PROTEIN 2+ mg/dL (NEGATIVE); URINE UROBILINOGEN NORMAL mg/dL (0.2-1.0)
--- NOTE | 2018-05-06 00:15 | C.PDOC ---
History Of Present Illness 62 year old male patient presents to the ER with c/o right upper arm pain since approx 10 am today. Patient reports he fell asleep on his recliner and thinks he leaned/fell asleep on his right arm (at approx 11pm last night). Patient states right upper arm is painful and swollen, and he has some tingling in the arm. He denies IV drug use, fever, trauma/injuries. PMhx bipolar disorder, on suboxone. Time Seen by Provider: 05/05/18 22:37 Chief Complaint (Nursing): Upper Extremity Problem/Injury History Per: Patient History/Exam Limitations: no limitations Onset/Duration Of Symptoms: Hrs Current Symptoms Are (Timing): Still Present Quality: "Pain" Severity: Moderate Past Medical History Reviewed: Historical Data, Nursing Documentation, Vital Signs Vital Signs: Last Vital Signs Temp 97.9 F 05/05/18 22:42 Pulse 66 05/05/18 22:42 Resp 20 05/05/18 22:42 BP 133/90 05/05/18 22:42 Pulse Ox 98 05/05/18 22:42 - Medical History PMH: Anxiety, Bipolar Disorder, Depression - [facility] Procedures DETOXIFICATION SERVICES FOR SUBSTANCE ABUSE TREATMENT (01/11/18) GROUP NEWSROOM INTERN FOR SUBSTANCE ABUSE TREATMENT, PSYCHOEDUCATION (01/11/18) GROUP NEWSROOM INTERN FOR SUBSTANCE ABUSE, COGNITIVE BEHAVIORAL (01/11/18) GROUP PSYCHOTHERAPY (01/11/18) INDIV NEWSROOM INTERN FOR SUBSTANCE ABUSE, COGNITIVE BEHAVIORAL (09/16/16) INDIV PSYCHOTHERAPY FOR SUBSTANCE ABUSE TREATMENT, SUPPORT (01/11/18) INDIV PSYCHOTHERAPY FOR SUBSTANCE ABUSE, COGNITIV BEHAVIORAL (01/11/18) INDIV PSYCHOTHERAPY FOR SUBSTANCE ABUSE, PSYCHOEDUCATION (01/11/18) INDIVIDUAL PSYCHOTHERAPY, COGNITIVE-BEHAVIORAL (01/11/18) INDIVIDUAL PSYCHOTHERAPY, SUPPORTIVE (01/11/18) MEDICATION MANAGEMENT (08/30/17) MEDS MGMT FOR SUBSTANCE ABUSE TREATMENT, METHADONE MAINT (10/13/16) Family History: States: No Known Family Hx - Social History Hx Alcohol Use: No Hx Substance Use: Yes (heroine) - Immunization History Hx Tetanus Toxoid Vaccination: No Hx Influenza Vaccination: No Hx Pneumococcal Vaccination: No Review Of Systems Constitutional: Negative for: Fever, Other (drug inject/ trauma on right arm) Cardiovascular: Negative for: Chest Pain Respiratory: Negative for: Shortness of Breath Gastrointestinal: Negative for: Nausea, Vomiting, Abdominal Pain Musculoskeletal: Positive for: Arm Pain (Right arm painful and swollen) Skin: Negative for: Rash Neurological: Negative for: Weakness, Numbness Physical Exam - Physical Exam Appears: Well, Non-toxic, Other (mildly drowsy, in moderate pain) Skin: Normal Color, Warm, Dry, Other (see extremity exam) Head: Atraumatic, Normacephalic Eye(s): bilateral: Normal Inspection, EOMI Oral Mucosa: Moist Neck: Supple Chest: Symmetrical, No Deformity Cardiovascular: Rhythm Regular Respiratory: Normal Breath Sounds, No Rales, No Rhonchi, No Wheezing Gastrointestinal/Abdominal: Normal Exam, Bowel Sounds, Soft, No Tenderness Back: No CVA Tenderness Extremity: Normal ROM (x4), Tenderness (right lateral upper arm (+) TTP), Capillary Refill (<2 sec all digits ), No Deformity, Swelling (right lateral upper arm; blanching and skin tense; 3-4 cm area of mild erythema and open bullae) Pulses: Left Brachial: Normal, Right Brachial: Normal, Left Radial: Normal, Right Radial: Normal Neurological/Psych: Oriented x3, Normal Motor, Normal Sensation ED Course And Treatment - Laboratory Results Result Diagrams: 05/08/18 07:10 05/08/18 07:10 O2 Sat by Pulse Oximetry: 98 (RA) Pulse Ox Interpretation: Normal - Other Rad humerus X-Ray: Interpreted by Me, Viewed By Me Interpretation: no fracture Progress Note: Blood work, Xray of humerus ordered and reviewed by me. Patient given IV NS bolus, low dose IV toradol. Compartment pressures checked by me - 17mmHg anterior compartment, 20mmg Hg posterior compartment (mid arm). Deltoid pressures also checked, 25mmHg anteriorly, 23-24mmHg posteriorly. Pressures are < 30mmHg, no current compartment syndrome, but pressures are elevated. 2:30am- Paged Dr. Boogie to discuss patient, concerned about impending compartment syndrome. 3:08AM- Spoke with surgery resident Dr. Blackwell due to concern about possible impending compartment syndome, she will eval patient. 3:50am- Patient seen by surgery resident, will monitor patient overnight until orthopedics can see patient in AM. - Physician Consult Information Physician Contacted: Judah Hickman Outcome Of Conversation: Discussed patient with hospitalist, agrees with admission for rhabdomyolysis, GLEN, muscle injury, possible impending compartment syndrome. Critical Care Time - Critical Care Note Total Time (in mins): 50 Documented critical care: time excludes all time spent performing seperately billable procedures. Disposition - Disposition Disposition: HOSPITALIZED Disposition Time: 01:39 Condition: STABLE - Clinical Impression Clinical Impression: Rhabdomyolysis, Acute kidney failure, Muscle injury - Scribe Statement The provider has reviewed the documentation as recorded by the Catrachitoibanna Vivas Do Provider Attestation: All medical record entries made by the Catrachitoibe were at my direction and personally dictated by me. I have reviewed the chart and agree that the record accurately reflects my personal performance of the history, physical exam, medical decision making, and the department course for this patient. I have also personally directed, reviewed, and agree with the discharge instructions and disposition.
[2018-05-06 00:22] LABS: BARBITURATES, UR NEGATIVE (NEGATIVE); OPIATES, UR NEGATIVE (NEGATIVE); PHENCYCLIDINE, UR NEGATIVE (NEGATIVE)
[2018-05-06 00:30] LABS: BENZODIAZEPINES, UR POSITIVE (NEGATIVE)
[2018-05-06] MEDS ORDERED: Sodium Chloride 0.9% 1,000 ML IV ONE ×2 (01:04→01:09)
[2018-05-06] MEDS ORDERED: Morphine 4 MG/ML VIAL ONE (01:17)
[2018-05-06] MEDS ORDERED: Sodium Chloride 0.9% 2,000 ML ONE (01:17)
[2018-05-06] MEDS ORDERED: Sodium Chloride 0.9% 1,000 ML IV SCH (04:00)
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
[2018-05-06] MEDS: Sodium Chloride 0.9% 1,000 ML IV SCH ×4 (07:12→21:07)
[2018-05-06 08:29] VITALS: RESP 20
[2018-05-06 09:15] LABS: BASO % 0.7 % (0.0-2.0); EOS # 0.3 K/uL (0.0-0.7); EOS % 4.4 % (0.0-4.0); HEMOGLOBIN 13.8 g/dL (12.0-18.0); LYMPH # 1.5 K/uL (1.0-4.3); LYMPH % 21.2 % (20.0-40.0); MEAN CELL VOLUME 87.8 fL (80.0-94.0); MEAN CORPUSCULAR HEMOGLOBIN 30.1 pg (27.0-31.0); MEAN CORPUSCULAR HGB CONC 34.3 g/dL (33.0-37.0); MEAN PLATELET VOLUME 7.5 fL (7.2-11.7); MONO # 0.7 K/uL (0.0-0.8); MONO % 10.4 % (0.0-10.0); NEUT # 4.4 K/uL (1.8-7.0); NEUT % 63.3 % (50.0-75.0); NRBC % 0.1 % (0.0-2.0); RBC 4.58 Mil/uL (4.40-5.90); RED CELL DISTRIBUTION WIDTH 15.3 % (11.5-14.5); WHITE BLOOD COUNT 6.9 K/uL (4.8-10.8)
[2018-05-06 09:16] LABS: ALB/GLOB RATIO 1.5 (1.0-2.1); ALBUMIN 3.6 g/dL (3.5-5.0); ALT/SGPT 105 U/L (21-72); AST/SGOT 360 U/L (17-59); BLOOD UREA NITROGEN 23 mg/dL (9-20); CALCIUM 8.3 mg/dl (8.6-10.4); GFR NON-AFRICAN AMERICAN 56
--- NOTE | 2018-05-06 10:09 | RAD ---
PROCEDURE: Radiographs of the right humerus. HISTORY: right upper humerus pain/swelling COMPARISON: None available. FINDINGS: BONES: No acute displaced fracture or dislocation. SOFT TISSUES: Marked soft tissue swelling. No evidence of radiopaque foreign body. OTHER FINDINGS: None. IMPRESSION: Marked soft tissue swelling. No acute displaced fracture or dislocation identified. If symptoms persist, or if there is continued clinical concern, x-ray follow-up in 7-10 days should be considered.
[2018-05-06 12:33] LABS: VENOUS BLOOD GAS BASE EXCESS -0.9 mmol/L (0.0-2.0); VENOUS BLOOD GAS PCO2 50 mmHg (40-60); VENOUS BLOOD GAS PO2 36 mm/Hg (30-55); VENOUS BLOOD PH 7.32 (7.32-7.43)
[2018-05-06 12:41] LABS: URINE BACTERIA RARE (<OCC); URINE BILIRUBIN NEGATIVE (NEGATIVE); URINE BLOOD 3+ (NEGATIVE); URINE COLOR Yellow (YELLOW); URINE GLUCOSE (UA) NORMAL (Normal); URINE PROTEIN NEGATIVE (NEGATIVE); URINE UROBILINOGEN NORMAL mg/dL (0.2-1.0)
[2018-05-06 12:43] LABS: URINE CLARITY SLHAZY (Clear); URINE LEUKOCYTE ESTERASE TRACE Leu/uL (Negative)
[2018-05-06] MEDS ORDERED: Vancomycin 1 gm/NS 200 ml 1 GM/200 ML BAG IVPB STA (14:15)
--- NOTE | 2018-05-06 16:57 | CP.PCM.PN ---
<Lora Stewart - Last Filed: 05/06/18 19:31> Subjective - Date & Time of Evaluation Date of Evaluation: 05/06/18 Time of Evaluation: 08:00 - Subjective Subjective: Pt examined at bedside today. No acute events overnight. Pt reports he is very frustrated nursing and staff are treating him poorly and not taking his complaints seriously. Pt reports he is in severe pain and needs pain medication. Nursing reports he has been aggressive and intentionally intimidating. When questioned, pt reports pain has worsened since admission. He also admitted to another area of pain on his right buttock. Pt reports decreased ROM in right arm due to pain. Denies chest pain, sob, n/v/d Objective - Vital Signs/Intake and Output Vital Signs (last 24 hours): Temp Pulse Resp BP Pulse Ox 98.1 F 75 20 154/82 H 97 05/06/18 08:00 05/06/18 08:00 05/06/18 08:00 05/06/18 02:49 05/06/18 08:00 Intake and Output: 05/06/18 05/06/18 06:59 18:59 Intake Total 2730 Output Total 400 Balance 2330 - Medications Medications: Current Medications Alprazolam (Xanax) 0.25 mg PO Q6H PRN PRN Reason: Anxiety Last Admin: 05/06/18 10:38 Dose: 0.25 mg Clonidine HCl (Catapres) 0.1 mg PO Q6 PRN PRN Reason: Anxiety Gabapentin (Neurontin) 100 mg PO TID [facility] Last Admin: 05/06/18 14:02 Dose: 100 mg Hydroxyzine HCl (Atarax) 25 mg PO QID [facility] Sodium Chloride (Sodium Chloride 0.9%) 1,000 mls @ 200 mls/hr IV .Q5H [facility] Last Admin: 05/06/18 12:00 Dose: Not Given Influenza Virus Vaccine (Fluzone Quad [id number]) 60 mcg IM .ONCE ONE Stop: 05/08/18 10:01 Pneumococcal Polyvalent Vaccine (Pneumovax 23 Vaccine) 0.5 ml IM .ONCE ONE Stop: 05/08/18 10:01 - Labs Labs: 05/06/18 06:46 05/06/18 06:46 - Constitutional Appears: Non-toxic - Head Exam Head Exam: ATRAUMATIC, NORMAL INSPECTION, NORMOCEPHALIC - Eye Exam Eye Exam: EOMI, Normal appearance - Neck Exam Neck Exam: Normal Inspection - Respiratory Exam Respiratory Exam: Clear to Ausculation Bilateral, NORMAL BREATHING PATTERN - Cardiovascular Exam Cardiovascular Exam: REGULAR RHYTHM - GI/Abdominal Exam GI & Abdominal Exam: Soft, Normal Bowel Sounds. absent: Distended - Extremities Exam Extremities Exam: absent: Normal Inspection Additional comments: RUE: area of erythema noted on lateral area of proximal UE. Area of erythema traced. Weeping bristers. Increasing pressures noted throughout day. Pt also has soft mobile fatty lesions on arms B/L Right buttock: non-erythematous indurated area on medial right buttock. - Neurological Exam Neurological Exam: Alert, Awake, Oriented x3 - Psychiatric Exam Psychiatric exam: Agitated - Skin Skin Exam: Dry, Intact, Normal Color, Warm Assessment and Plan - Assessment and Plan (Free Text) Assessment: 62 year old male w/ PMHx of bipolar disorder, depression, substance abuse, admitted w/ possible cellulitis/rhabdo of right upper extremity Rhabdo -CK elevated 21, 234 -monitor kidney function -ortho consult Dr. Boogie Cellulitis -WBC WNL -f/u blood cxs -f/u CT right UE, buttocks -vanco 1g qd GLEN -likely 2/2 to rhabdo -NS @200 -nephro consult, Dr. Valerio Transaminitis -f/u hep panel substance abuse -xanax .25 q6 prn -clonidine .1mg q6 prn -atarax 25mg q6 prn -psych, Dr. Lancaster <Freddie Harmon - Last Filed: 05/11/18 09:04> Objective - Vital Signs/Intake and Output Vital Signs (last 24 hours): Temp Pulse Resp BP Pulse Ox 98.2 F 60 20 159/92 H 96 05/09/18 09:50 05/09/18 09:50 05/09/18 09:50 05/09/18 09:50 05/09/18 09:50 - Labs Labs: 05/08/18 07:10 05/08/18 07:10 Attending/Attestation - Attestation I have personally seen and examined this patient.: Yes I have fully participated in the care of the patient.: Yes I have reviewed all pertinent clinical information, including history, physical exam and plan: Yes Notes (Text): Seen and examined by me with the resident 1.Rhabdomyolysis 2.cellulites 3.ARF Hydrate,pain meds prn,Monitor creatinine I agree with the resident's documentation
[2018-05-07] MEDS ORDERED: Tramadol 25 mg PO ONE (00:05)
--- NOTE | 2018-05-07 01:14 | CON ---
DATE: 05/06/2018 HISTORY OF PRESENT ILLNESS: The patient is a 62-year-old male with past medical history of bipolar disorder, depression, substance abuse with multiple psychiatric admissions. The patient was consulted for right shoulder pain and swelling. The patient is examined bedside. The patient reports he fell asleep right shoulder for unknown duration, he woke up with pain in his right deltoid region and swelling. Currently, patient denies any paresthesias or motor weakness in the right upper extremity. Denies pain in the extremity or joint. Denies any fevers or chills. Denies any recent history of substance abuse. PHYSICAL EXAMINATION: MUSCULOSKELETAL: Examination of the patient's right shoulder, the compartments are tight and compressible. The patient able to actively and passively move the arm without significant discomfort. The range of motion is limited secondary to pain. 2+ pedal pulses. Sensation is grossly intact. The patient is able to move the digits without any difficulty. IMAGING: X-ray of the patient's right shoulder did not show any evidence of fracture or dislocation. ASSESSMENT: A 62-year-old male with rhabdomyolysis to the right deltoid region. TREATMENT: I had a detailed discussion with the patient explaining we will monitor the swelling of his right shoulder. Currently, no acute orthopedic intervention is needed. The patient will continue medical treatment of IV hydration to treat his rhabdomyolysis. Keep the arm elevated. If the patient symptoms worsen and swelling is worsening, then that may necessitate a surgical intervention. Rachelle Boogie MD LUIS ARMANDO
[2018-05-07] MEDS: Sodium Chloride 0.9% 1,000 ML IV SCH ×6 (03:46→17:56)
--- NOTE | 2018-05-07 04:01 | CON ---
DATE: 05/06/2018 HISTORY OF PRESENT ILLNESS: A 62-year-old male with past medical history of bipolar disorder, depression, substance abuse status post multiple inpatient psychiatric admissions, presented with right upper arm pain and swelling since previous two days; Nephrology being consulted for rhabdomyolysis and acute kidney injury. The patient reports that he took some Xanax on Monday night and fell asleep on his couch; when he awakened Monday morning had severe swelling and pain in the right upper arm; tried using diclofenac cream, p.o. Motrin and Tylenol without significant improvement and therefore came to the ED yesterday. The patient reports having worked out just before developing current symptoms; had not worked out in a long time. He otherwise had some upper respiratory symptoms going on in the last few days with productive cough; the patient otherwise had been having good appetite. Denied any nausea, vomiting, or diarrhea; denied any difficulty urinating. No dysuria. No decrease in urinary stream. PAST MEDICAL HISTORY: As above. SOCIAL HISTORY: Smoking history positive. FAMILY HISTORY: Mother and sister with breast cancer, father status post some small strokes per patient; REVIEW OF SYSTEMS: CONSTITUTIONAL: Had some chills earlier on, not currently. HEENT: Vision is stable. No dysphagia. RESPIRATORY: Recent productive cough. Otherwise denies any dyspnea. CARDIOVASCULAR: No chest pain or palpitations. No swelling in the legs. GI: As per HPI. : As per HPI. MUSCULOSKELETAL: As per HPI. Denies any other aches or pains. PSYCHIATRIC: History of anxiety attacks, depression. NEURO: Denies any dizziness or headaches. SKIN: Reports having large blister over affected area of right upper arm, also had a similar finding couple of weeks ago per the patient. PHYSICAL EXAMINATION: GENERAL: No distress. Conversing coherently in full sentences. VITAL SIGNS: Blood pressure this afternoon 162/74, heart rate 74, respirations 20, temperature 98.8, O2 sat 98% on room air. HEENT: Moist mucous membranes. Nonicteric. No cervical lymphadenopathy. RESPIRATORY: Lungs clear to auscultation bilaterally. No rales. No rhonchi. No wheezes. CARDIOVASCULAR: Heart sounds, S1, S2 normal. No murmur, no gallops or rubs. GI: Abdomen soft, nontender, nondistended. : No bladder distention. No CVA tenderness. EXTREMITIES: No leg edema. The patient with marked right upper arm swelling with approximately 1 cm blister present. SKIN: Warm, no cyanosis. NEURO: No resting tremor. PSYCHIATRIC: Normal affect. LABORATORY DATA: CBC; WBC 6.9, hemoglobin 13.8, hematocrit 40.2, platelets 163. Chemistry panel, sodium 146, potassium 4.6, chloride 108, bicarb 29, BUN 23, creatinine 1.3 decreased from 1.7 yesterday, glucose 122, calcium 8.3, phosphorus 3, magnesium 2.2, AST 360, ALT 105, albumin 3.6. CK level 21,234, decreased from 22,749. UA showing 3+ blood, 12 wbc's, 27 rbc's per high power field. ASSESSMENT AND PLAN: 1. Acute kidney injury, serum creatinine elevated to 1.7 from baseline of 0.9 in the setting of rhabdomyolysis; appears to be prerenal etiology as renal function improving with intravascular volume repletion. Continue to treat rhabdomyolysis aggressively with IV fluids at current rate ( 200 mL per hour). 2. Recommend to avoid NSAIDs for pain control until serum creatinine is closer to baseline and CK levels are declining steadily. 3. Avoid other nephrotoxic agents. 4. No need for calcium replenishment; mild hypocalcemia will correct once injured muscle starts to recover in which case calcium levels can become elevated. 5. We will check random vancomycin level in a.m., if its elevated, need to avoid redosing vancomycin frequently. Thank you for this referral. We will be following up closely. Darin Valerio MD
[2018-05-07 07:21] LABS: BASO % 0.3 % (0.0-2.0); EOS # 0.2 K/uL (0.0-0.7); EOS % 2.7 % (0.0-4.0); HEMOGLOBIN 13.1 g/dL (12.0-18.0); LYMPH # 1.5 K/uL (1.0-4.3); LYMPH % 24.8 % (20.0-40.0); MEAN CORPUSCULAR HEMOGLOBIN 29.9 pg (27.0-31.0); MEAN CORPUSCULAR HGB CONC 35.1 g/dL (33.0-37.0); MEAN PLATELET VOLUME 6.8 fL (7.2-11.7); MONO # 0.5 K/uL (0.0-0.8); MONO % 9.1 % (0.0-10.0); NEUT # 3.7 K/uL (1.8-7.0); NEUT % 63.1 % (50.0-75.0); NRBC % 0.2 % (0.0-2.0); RBC 4.4 Mil/uL (4.40-5.90); WHITE BLOOD COUNT 5.9 K/uL (4.8-10.8)
[2018-05-07 07:47] LABS: ALB/GLOB RATIO 1.4 (1.0-2.1); ALBUMIN 3.5 g/dL (3.5-5.0); ALT/SGPT 110 U/L (21-72); AST/SGOT 348 U/L (17-59); BLOOD UREA NITROGEN 9 mg/dL (9-20); CALCIUM 8.6 mg/dl (8.6-10.4); GFR NON-AFRICAN AMERICAN > 60
[2018-05-07 08:27] LABS: HEPATITIS B SURFACE AG Negative (NEGATIVE)
[2018-05-07 08:35] LABS: HEPATITIS A IGM NEGATIVE (NEGATIVE); HEPATITIS B CORE AB NEGATIVE (NEGATIVE)
--- NOTE | 2018-05-07 09:38 | CP.PCM.PN ---
<Behzad Gracia - Last Filed: 05/07/18 13:21> Subjective - Date & Time of Evaluation Date of Evaluation: 05/07/18 Time of Evaluation: 07:40 - Subjective Subjective: Nephrology Progress Note for Dr. Valerio Patient was seen and examined at bedside. No acute events overnight. Patient complains of R upper ext pain and swelling. States that the pain is well controlled. No other complains. Patient denies chest pain, shortness of breath, palpitations, nausea, vomiting, diarrhea or constipation. 12 Point ROS performed and neg other than stated above. Objective - Vital Signs/Intake and Output Vital Signs (last 24 hours): Temp Pulse Resp BP Pulse Ox 97.8 F 73 20 128/85 96 05/07/18 08:38 05/07/18 08:38 05/07/18 08:38 05/07/18 08:38 05/07/18 08:38 Intake and Output: 05/07/18 05/07/18 06:59 18:59 Intake Total 4280 Output Total 2500 Balance 1780 - Medications Medications: Current Medications Acetaminophen (Tylenol 325mg Tab) 650 mg PO Q8H PRN PRN Reason: Pain, moderate (4-7) Alprazolam (Xanax) 0.25 mg PO Q6H PRN PRN Reason: Anxiety Last Admin: 05/07/18 07:31 Dose: 0.25 mg Clonidine HCl (Catapres) 0.1 mg PO Q6 PRN PRN Reason: Anxiety Last Admin: 05/07/18 07:31 Dose: 0.1 mg Gabapentin (Neurontin) 100 mg PO TID [facility] Last Admin: 05/06/18 17:53 Dose: 100 mg Heparin Sodium (Porcine) (Heparin) 5,000 units SC Q12 [facility] Last Admin: 05/07/18 09:26 Dose: 5,000 units Hydroxyzine HCl (Atarax) 25 mg PO QID PRN PRN Reason: Agitation Last Admin: 05/06/18 18:25 Dose: 25 mg Sodium Chloride (Sodium Chloride 0.9%) 1,000 mls @ 200 mls/hr IV .Q5H [facility] Last Admin: 05/07/18 09:26 Dose: 200 mls/hr Influenza Virus Vaccine (Fluzone Quad [id number]) 60 mcg IM .ONCE ONE Stop: 05/08/18 10:01 Pneumococcal Polyvalent Vaccine (Pneumovax 23 Vaccine) 0.5 ml IM .ONCE ONE Stop: 05/08/18 10:01 Trazodone HCl (Desyrel) 50 mg PO HS [facility] - Labs Labs: 05/07/18 07:13 05/07/18 07:13 - Constitutional Appears: No Acute Distress - Head Exam Head Exam: ATRAUMATIC, NORMOCEPHALIC - Eye Exam Eye Exam: EOMI - ENT Exam ENT Exam: Mucous Membranes Moist - Respiratory Exam Respiratory Exam: Clear to Ausculation Bilateral. absent: Rales, Wheezes - Cardiovascular Exam Cardiovascular Exam: REGULAR RHYTHM, +S1, +S2 - GI/Abdominal Exam GI & Abdominal Exam: Soft. absent: Distended, Tenderness - Extremities Exam Additional comments: RUE tender to palpation, pulses, motor and sensation intact - Neurological Exam Neurological Exam: Alert, Awake Neuro motor strength exam: Left Upper Extremity: 5, Right Upper Extremity: 5 - Skin Skin Exam: Dry, Warm Additional comments: RUE: Dressing in place c/d/i Assessment and Plan - Assessment and Plan (Free Text) Assessment: 62 year old male w/ PMHx of bipolar disorder, depression, substance abuse, presents with RUE tenderness and swelling found to have rhabdo, GLEN, and elevated transaminitis. RUE with possible underlying cellulites. - Cont with aggressive fluid hydration with 200ml/hr - His Cr is 0.6 today back to baseline - Received Vanc x 1, consider continuing - F/u orthopedic consult and recs - CT scan of extremity ordered, will f/u - Pain control - Avoid nephrotoxic drugs Thank you for the consult. Will sign off. Please reconsult as necessary. Case and plan was reviewed and discussed in detail with Dr Valerio. <Darin Valerio - Last Filed: 05/08/18 08:24> Objective - Vital Signs/Intake and Output Vital Signs (last 24 hours): Temp Pulse Resp BP Pulse Ox 98 F 58 L 20 156/99 H 94 L 05/08/18 00:00 05/08/18 00:00 05/08/18 00:00 05/08/18 00:00 05/08/18 00:00 Intake and Output: 05/08/18 05/08/18 06:59 18:59 Intake Total 1840 Balance 1840 - Medications Medications: Current Medications Clonidine HCl (Catapres) 0.1 mg PO Q6 PRN PRN Reason: Anxiety Last Admin: 05/08/18 05:59 Dose: 0.1 mg Gabapentin (Neurontin) 100 mg PO TID [facility] Last Admin: 05/07/18 17:31 Dose: 100 mg Heparin Sodium (Porcine) (Heparin) 5,000 units SC Q12 [facility] Last Admin: 05/07/18 21:41 Dose: 5,000 units Hydroxyzine HCl (Atarax) 25 mg PO Q4H PRN PRN Reason: Anxiety Last Admin: 05/08/18 04:16 Dose: 25 mg Sodium Chloride (Sodium Chloride 0.9%) 1,000 mls @ 200 mls/hr IV .Q5H [facility] Last Admin: 05/08/18 04:13 Dose: Not Given Piperacillin Sod/Tazobactam Sod (Zosyn 2.25 Gm Iv Premix) 2.25 gm in 50 mls @ 100 mls/hr IVPB Q8H [facility]; Protocol Last Admin: 05/08/18 01:17 Dose: 100 mls/hr Influenza Virus Vaccine (Fluzone Quad [id number]) 60 mcg IM .ONCE ONE Stop: 05/08/18 10:01 Pneumococcal Polyvalent Vaccine (Pneumovax 23 Vaccine) 0.5 ml IM .ONCE ONE Stop: 05/08/18 10:01 Trazodone HCl (Desyrel) 50 mg PO HS [facility] Last Admin: 05/07/18 21:41 Dose: 50 mg - Labs Labs: 05/08/18 07:10 05/08/18 07:10 Attending/Attestation - Attestation I have personally seen and examined this patient.: Yes I have fully participated in the care of the patient.: Yes I have reviewed all pertinent clinical information, including history, physical exam and plan: Yes Notes (Text): Unable to see patient today due to him being in [place]; agree with the resident's note as above; Rhabdomyolysis with likely pre-renal GLEN; renal function now improved with IVF and back to normal; previously we recommended to avoid NSAIDS but now that renal function is recovered and patient is volume replete, NSAIDS should be safe; continue NS at 200 cc/hr, monitor volume status closely; Thank you for this referral, we will sign off; please feel free to call us back at any time;.
[2018-05-07 09:56] LABS: HEPATITIS C ANTIBODY REACTIVE (NEGATIVE)
--- NOTE | 2018-05-07 10:44 | RAD ---
Date of service: 05/07/2018 HISTORY: Rhabdomylysis, getting a lot of IVF quickly COMPARISON: No prior. FINDINGS: LUNGS: There is mild pulmonary venous congestion. PLEURA: No significant pleural effusion identified, no pneumothorax apparent. CARDIOVASCULAR: Mild cardiomegaly and prominent central vasculature. OSSEOUS STRUCTURES: No significant abnormalities. VISUALIZED UPPER ABDOMEN: Normal. OTHER FINDINGS: None. IMPRESSION: Mild cardiomegaly and mild pulmonary venous congestion.
--- NOTE | 2018-05-07 11:47 | CP.PCM.PN ---
<Lora Stewart - Last Filed: 05/07/18 17:11> Subjective - Date & Time of Evaluation Date of Evaluation: 05/07/18 Time of Evaluation: 10:15 - Subjective Subjective: Pt examined at bedside. No acute events overnight. Pt reports he is still in pain although it has improved. He keeps questioning his medical treatment. Denies chest pain, SOB, abd pain, n/v/d Objective - Vital Signs/Intake and Output Vital Signs (last 24 hours): Temp Pulse Resp BP Pulse Ox 97.8 F 73 20 128/85 96 05/07/18 08:38 05/07/18 08:38 05/07/18 08:38 05/07/18 08:38 05/07/18 08:38 Intake and Output: 05/07/18 05/07/18 06:59 18:59 Intake Total 4280 Output Total 2500 Balance 1780 - Medications Medications: Current Medications Acetaminophen (Tylenol 325mg Tab) 650 mg PO Q8H PRN PRN Reason: Pain, moderate (4-7) Last Admin: 05/07/18 10:13 Dose: 650 mg Alprazolam (Xanax) 0.25 mg PO Q6H PRN PRN Reason: Anxiety Last Admin: 05/07/18 07:31 Dose: 0.25 mg Clonidine HCl (Catapres) 0.1 mg PO Q6 PRN PRN Reason: Anxiety Last Admin: 05/07/18 07:31 Dose: 0.1 mg Gabapentin (Neurontin) 100 mg PO TID [facility] Last Admin: 05/07/18 10:13 Dose: 100 mg Heparin Sodium (Porcine) (Heparin) 5,000 units SC Q12 [facility] Last Admin: 05/07/18 09:26 Dose: 5,000 units Hydroxyzine HCl (Atarax) 25 mg PO QID PRN PRN Reason: Agitation Last Admin: 05/06/18 18:25 Dose: 25 mg Sodium Chloride (Sodium Chloride 0.9%) 1,000 mls @ 200 mls/hr IV .Q5H [facility] Last Admin: 05/07/18 09:26 Dose: 200 mls/hr Influenza Virus Vaccine (Fluzone Quad [id number]) 60 mcg IM .ONCE ONE Stop: 05/08/18 10:01 Pneumococcal Polyvalent Vaccine (Pneumovax 23 Vaccine) 0.5 ml IM .ONCE ONE Stop: 05/08/18 10:01 Trazodone HCl (Desyrel) 50 mg PO HS [facility] - Labs Labs: 05/07/18 07:13 05/07/18 07:13 - Constitutional Appears: No Acute Distress - Head Exam Head Exam: ATRAUMATIC, NORMAL INSPECTION, NORMOCEPHALIC - Eye Exam Eye Exam: EOMI, Normal appearance - ENT Exam ENT Exam: Mucous Membranes Moist, Normal Exam - Neck Exam Neck Exam: Normal Inspection - Respiratory Exam Respiratory Exam: Clear to Ausculation Bilateral, NORMAL BREATHING PATTERN. absent: Rales, Rhonchi - Cardiovascular Exam Cardiovascular Exam: REGULAR RHYTHM, +S1, +S2 - GI/Abdominal Exam GI & Abdominal Exam: Soft, Normal Bowel Sounds. absent: Distended, Tenderness - Extremities Exam Extremities Exam: absent: Calf Tenderness, Full ROM (right UE ROM limited due to pain), Normal Inspection (RUE still edematous. Margin of erythem improving compared to admission.), Pedal Edema - Neurological Exam Neurological Exam: Alert, Awake, Oriented x3 - Psychiatric Exam Psychiatric exam: Normal Affect, Normal Mood - Skin Skin Exam: Dry, Intact, Normal Color, Warm Assessment and Plan - Assessment and Plan (Free Text) Assessment: 62 year old male w/ PMHx of bipolar disorder, depression, substance abuse, Hep C, admitted w/ possible cellulitis/rhabdo of right upper extremity Rhabdo -CK improving 21,234-->13,809 -monitor kidney function Cellulitis, RUE -zosyn 2.25 iv q8 -blood cx: no growth -CT right UE: Findings consistent w/ cellulitis -CT pelvis: mild infiltration in right lateral subcutaneous fat w/out evidence of drainable fluid collection/abscess GLEN -likely 2/2 to rhabdo -NS @200 -nephro consult, Dr. Valerio Transaminitis -Hep C + substance abuse -trazodone 50mg hs -clonidine .1mg q6 prn -atarax 25mg q4 prn -psych, Dr. Lancaster Ppx -heparin 5000 q12 <Varinder Lopez - Last Filed: 05/07/18 17:22> Objective - Vital Signs/Intake and Output Vital Signs (last 24 hours): Temp Pulse Resp BP Pulse Ox 97.8 F 73 20 128/85 96 05/07/18 08:38 05/07/18 08:38 05/07/18 08:38 05/07/18 08:38 05/07/18 08:38 Intake and Output: 05/07/18 05/07/18 06:59 18:59 Intake Total 4280 2100 Output Total 2500 Balance 1780 2100 - Medications Medications: Current Medications Clonidine HCl (Catapres) 0.1 mg PO Q6 PRN PRN Reason: Anxiety Last Admin: 05/07/18 15:42 Dose: 0.1 mg Gabapentin (Neurontin) 100 mg PO TID [facility] Last Admin: 05/07/18 13:32 Dose: 100 mg Heparin Sodium (Porcine) (Heparin) 5,000 units SC Q12 [facility] Last Admin: 05/07/18 09:26 Dose: 5,000 units Hydroxyzine HCl (Atarax) 25 mg PO Q4H PRN PRN Reason: Anxiety Last Admin: 05/07/18 15:39 Dose: 25 mg Sodium Chloride (Sodium Chloride 0.9%) 1,000 mls @ 200 mls/hr IV .Q5H [facility] Last Admin: 05/07/18 13:40 Dose: Not Given Piperacillin Sod/Tazobactam (Sod 2.25 gm/ Sodium Chloride) 100 mls @ 200 mls/hr IVPB Q8 [facility]; Protocol Influenza Virus Vaccine (Fluzone Quad [id number]) 60 mcg IM .ONCE ONE Stop: 05/08/18 10:01 Pneumococcal Polyvalent Vaccine (Pneumovax 23 Vaccine) 0.5 ml IM .ONCE ONE Stop: 05/08/18 10:01 Trazodone HCl (Desyrel) 50 mg PO HS [facility] - Labs Labs: 05/07/18 07:13 05/07/18 07:13 Attending/Attestation - Attestation I have personally seen and examined this patient.: Yes I have fully participated in the care of the patient.: Yes I have reviewed all pertinent clinical information, including history, physical exam and plan: Yes Notes (Text): 05/07/18 17:20 Medical attending: Patient was seen and examined by me. Agree with the above note by the resident The patient was not in any acute distress when I came and saw him - he seems to be skeptical with reguards to his medications and has a lot of questions. At this time we are continuing with the IVF. The creatine has decreased and also the CPK decreased as well. He explains his urine color is much improved from before - it is now clear he says A portable chest XRAY was done since he is older and we are giving a lot of fluid and for the time being it is stable. Varinder Lopez
[2018-05-07] MEDS ORDERED: Iodixanol 320 MG/ML 100 ML BOTTLE IV ONE (12:50)
[2018-05-07] MEDS ORDERED: Buprenorphine Hydrochloride 2 mg SL ONE ×3 (13:00→22:00)
--- NOTE | 2018-05-07 13:08 | PCM.PSYCH ---
Initial Psychiatric Evaluation - Initial Psychiatric Evaluation Type of Admission: Voluntary Legal Status: Capacity Chief Complaint (in patient's own words): "I have pain in my arm" History of Present Illness and Precipitating Events: The patient is seen and case is discussed with team and his chart is reviewed. 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 The substance abuse program is in [facility] he gets Suboxone 16 mg/d but as per [facility] online registry it is 8 mg/d (printed and placed in chart) He denies all other drug use. He denies alcohol use. He has mild depression and anxiety but no suicidal ideation. Past psych history: He was diagnosed with major depression and at one point bipolar disorder. He has had several admissions and is currently on Neurontin and trazodone. he gets them from [facility] every other month. 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 He relapsed after he quit methadone. Stable again with suboxone. Yet, he needs to go to an IOP - his program is only once a month Medical history: Hepatitis C. Shoulder injury (again, which is why he is here) Social history: He is and has 2 kids aged 25 and 34 and he lives with his sister in [place], he is unemployed and on welfare Family psych history: None known Current Medications: Active Medications Generic Name Dose Route Start Last Admin Trade Name Freq PRN Reason Stop Dose Admin Clonidine HCl 0.1 mg 05/06/18 14:54 05/07/18 07:31 Catapres PO 0.1 mg Q6 PRN Administration Anxiety Gabapentin 100 mg 05/06/18 04:00 05/07/18 10:13 Neurontin PO 100 mg TID [facility] Administration Heparin Sodium (Porcine) 5,000 units 05/07/18 10:00 05/07/18 09:26 Heparin SC 5,000 units Q12 [facility] Administration Hydroxyzine HCl 25 mg 05/07/18 12:22 Atarax PO Q4H PRN Anxiety Sodium Chloride 1,000 mls @ 200 mls/hr 05/06/18 06:48 05/07/18 09:26 Sodium Chloride 0.9% IV 200 mls/hr .Q5H [facility] Administration Influenza Virus Vaccine 60 mcg 05/08/18 10:00 Fluzone Quad [id number] IM 05/08/18 10:01 .ONCE ONE Pneumococcal Polyvalent Vaccine 0.5 ml 05/08/18 10:00 Pneumovax 23 Vaccine IM 05/08/18 10:01 .ONCE ONE Trazodone HCl 50 mg 05/07/18 22:00 Desyrel PO [facility] Past Psychiatric History - Past Psychiatric History Previous Treatment History: Inpatient Pertinent Medical Hx (Current Medical&Sleep Prob, Allergies): Allergies Allergy/AdvReac Type Severity Reaction Status Date / Time No Known Allergies Allergy Verified 05/05/18 22:41 Buprenorphine HCl/Naloxone HCl [Suboxone 4 mg-1 mg Sl Film] 1 each SL TID 05/05/18 Gabapentin [Neurontin] 100 mg PO TID 05/05/18 traZODone [Desyrel] 100 mg PO DAILY 05/06/18 Review of Systems - Psychiatric Psychiatric: Abnormal Sleep Pattern, Anxiety, Difficulty Concentrating. absent: Hallucinations, Homicidal Ideation, Hopelessness, Paranoia, Suicidal Ideation Mental Status Examination - Personal Presentation Personal Presentation: Looks stated age - Affect Affect: Constricted - Motor Activity Motor Activity: Calm - Reliability in Providing Information Reliability in Providing Information: Fair - Speech Speech: Organized - Mood Mood: Anxious - Formal Thought Process Formal Thought Process: No Impairment - Cognitive Functions Orientation: Person, Place, Situation, Time Sensorium: Alert Attention/Concentration: Attentive Estimate of Intelligence: Average Judgement: Intact, as evidence by: Insight regarding need for hospitalization Memory: Recent intact, as evidence by: Ability to recall events of the day, Remote intact, as evidenced by: Abilit to recall sig. 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 Supportive therapy and psychoeducation Teach healthy lifestyle methods, i.e. diet, exercise, meditation Smoking cessation with [place] Nicotine patch if needed He will return to his program 34 min
--- NOTE | 2018-05-07 14:46 | CT ---
Date of service: 05/07/2018 PROCEDURE: HISTORY: buttock cellulitis/abscess COMPARISON: TECHNIQUE: FINDINGS: No pelvic lymphadenopathy, mass or ascites. The bladder and bowel loops are unremarkable. Mild prostate enlargement. No suspicious skeletal lesions. Mild infiltration in the right lateral subcutaneous fat without evidence of drainable fluid collection or abscess. IMPRESSION: Mild infiltration in the right lateral subcutaneous fat without evidence of drainable fluid collection or abscess.
--- NOTE | 2018-05-07 15:25 | CT ---
Date of service: 05/07/2018 PROCEDURE: HISTORY: right shoulder abscess/cellulitis COMPARISON: TECHNIQUE: FINDINGS: No fracture dislocation is observed. There is no gross evidence of rotator cuff tear. There is infiltration in the dorsal subcutaneous fat of the shoulder extending anteriorly and laterally and to a lesser extent posteriorly. No drainable fluid collection is observed. IMPRESSION: Infiltration in the shoulder subcutaneous fat without drainable fluid collection. Correlate with MRI if clinically indicated. Findings compatible with cellulitis.
--- NOTE | 2018-05-07 16:08 | CP.PCM.PN ---
Subjective - Date & Time of Evaluation Date of Evaluation: 05/07/18 Time of Evaluation: 15:00 - Subjective Subjective: Patient seen and examined sitting at bedside comfortable. Notes that right shoulder pain is improved compared to yesterday. Denies CP/SOB/fever/dizziness. Objective - Vital Signs/Intake and Output Vital Signs (last 24 hours): Temp Pulse Resp BP Pulse Ox 97.8 F 73 20 128/85 96 05/07/18 08:38 05/07/18 08:38 05/07/18 08:38 05/07/18 08:38 05/07/18 08:38 Intake and Output: 05/07/18 05/07/18 06:59 18:59 Intake Total 4280 2100 Output Total 2500 Balance 1780 2100 - Medications Medications: Current Medications Clonidine HCl (Catapres) 0.1 mg PO Q6 PRN PRN Reason: Anxiety Last Admin: 05/07/18 15:42 Dose: 0.1 mg Gabapentin (Neurontin) 100 mg PO TID [facility] Last Admin: 05/07/18 13:32 Dose: 100 mg Heparin Sodium (Porcine) (Heparin) 5,000 units SC Q12 [facility] Last Admin: 05/07/18 09:26 Dose: 5,000 units Hydroxyzine HCl (Atarax) 25 mg PO Q4H PRN PRN Reason: Anxiety Last Admin: 05/07/18 15:39 Dose: 25 mg Sodium Chloride (Sodium Chloride 0.9%) 1,000 mls @ 200 mls/hr IV .Q5H [facility] Last Admin: 05/07/18 13:40 Dose: Not Given Piperacillin Sod/Tazobactam (Sod 2.25 gm/ Sodium Chloride) 100 mls @ 200 mls/hr IVPB Q8 [facility]; Protocol Influenza Virus Vaccine (Fluzone Quad [id number]) 60 mcg IM .ONCE ONE Stop: 05/08/18 10:01 Pneumococcal Polyvalent Vaccine (Pneumovax 23 Vaccine) 0.5 ml IM .ONCE ONE Stop: 05/08/18 10:01 Trazodone HCl (Desyrel) 50 mg PO HS [facility] - Labs Labs: 05/07/18 07:13 05/07/18 07:13 - Extremities Exam Additional comments: RUE: deltoid tender, shoulder comp tight but compressible area of erythema decreased in size related to ER markings 3 blisters lateral shoulder healing well sensation and motor intact AXN/MN/UN/RN radial pulse intact Assessment and Plan (1) Rhabdomyolysis Assessment & Plan: Patient with acute rhabdomylosis of right deltoid -patient symptoms improving -recommend continue conservative management with IV hydration -pain control -elevate RUE -will follow -above d/w Dr. Boogie in agreement Status: Acute
[2018-05-07] MEDS ORDERED: Piperacillin/Tazobact 2.25 GM in Sodium Chloride 100 ML IVPB SCH (16:30)
[2018-05-07] MEDS: Piperacill/Tazo 2.25gm in Dex 2.25 GM/50 ML BAG IVPB SCH (17:31)
[2018-05-08] MEDS: Piperacill/Tazo 2.25gm in Dex 2.25 GM/50 ML BAG IVPB SCH ×3 (01:17→17:47)
[2018-05-08] MEDS: Sodium Chloride 0.9% 1,000 ML IV SCH ×5 (02:56→21:28)
--- NOTE | 2018-05-08 07:25 | CP.PCM.PN ---
<Lora Stewart - Last Filed: 05/08/18 12:58> Subjective - Date & Time of Evaluation Date of Evaluation: 05/08/18 Time of Evaluation: 07:23 - Subjective Subjective: Pt examined at bedside. No acute events overnight. Nursing reports pt continues to be beligerant and demanding with them. Today he reports increased swelling in his right arm extending down to his hand. Decreased ROM from swelling. Improvement in pain is reported. Denies chest pain, SOB, abd pain, N/V/D Objective - Vital Signs/Intake and Output Vital Signs (last 24 hours): Temp Pulse Resp BP Pulse Ox 98 F 58 L 20 156/99 H 94 L 05/08/18 00:00 05/08/18 00:00 05/08/18 00:00 05/08/18 00:00 05/08/18 00:00 Intake and Output: 05/08/18 05/08/18 06:59 18:59 Intake Total 1840 Balance 1840 - Medications Medications: Current Medications Clonidine HCl (Catapres) 0.1 mg PO Q6 PRN PRN Reason: Anxiety Last Admin: 05/08/18 05:59 Dose: 0.1 mg Gabapentin (Neurontin) 100 mg PO TID [facility] Last Admin: 05/07/18 17:31 Dose: 100 mg Heparin Sodium (Porcine) (Heparin) 5,000 units SC Q12 [facility] Last Admin: 05/07/18 21:41 Dose: 5,000 units Hydroxyzine HCl (Atarax) 25 mg PO Q4H PRN PRN Reason: Anxiety Last Admin: 05/08/18 04:16 Dose: 25 mg Sodium Chloride (Sodium Chloride 0.9%) 1,000 mls @ 200 mls/hr IV .Q5H [facility] Last Admin: 05/08/18 04:13 Dose: Not Given Piperacillin Sod/Tazobactam Sod (Zosyn 2.25 Gm Iv Premix) 2.25 gm in 50 mls @ 100 mls/hr IVPB Q8H [facility]; Protocol Last Admin: 05/08/18 01:17 Dose: 100 mls/hr Influenza Virus Vaccine (Fluzone Quad [id number]) 60 mcg IM .ONCE ONE Stop: 05/08/18 10:01 Pneumococcal Polyvalent Vaccine (Pneumovax 23 Vaccine) 0.5 ml IM .ONCE ONE Stop: 05/08/18 10:01 Trazodone HCl (Desyrel) 50 mg PO HS [facility] Last Admin: 05/07/18 21:41 Dose: 50 mg - Labs Labs: 05/07/18 07:13 05/07/18 07:13 - Constitutional Appears: No Acute Distress - Head Exam Head Exam: ATRAUMATIC, NORMAL INSPECTION, NORMOCEPHALIC - Eye Exam Eye Exam: EOMI, Normal appearance - ENT Exam ENT Exam: Mucous Membranes Moist, Normal Exam - Neck Exam Neck Exam: Normal Inspection - Respiratory Exam Respiratory Exam: Clear to Ausculation Bilateral, NORMAL BREATHING PATTERN - Cardiovascular Exam Cardiovascular Exam: REGULAR RHYTHM, +S1, +S2 - GI/Abdominal Exam GI & Abdominal Exam: Soft, Normal Bowel Sounds. absent: Tenderness - Extremities Exam Extremities Exam: Normal Capillary Refill. absent: Calf Tenderness, Normal Inspection (right UE edema increased down into hand. Ecchymosis on medial proximal surface as well as cubital fold), Pedal Edema - Neurological Exam Neurological Exam: Awake, Normal Gait, Oriented x3 - Psychiatric Exam Psychiatric exam: Anxious - Skin Skin Exam: Dry, Intact, Normal Color, Warm Assessment and Plan - Assessment and Plan (Free Text) Assessment: 62 year old male w/ PMHx of bipolar disorder, depression, substance abuse, Hep C, admitted w/ cellulitis/rhabdo of right upper extremity Cellulitis, RUE -f/u doppler RUE for increasing edema -zosyn 2.25 iv q8(05/07) -blood cx: no growth -CT right UE: Findings consistent w/ cellulitis -CT pelvis: mild infiltration in right lateral subcutaneous fat w/out evidence of drainable fluid collection/abscess Rhabdo -CK improving 21,234-->13,809-->11,487 -monitor renal fxn GLEN -stable and WNL -likely 2/2 to rhabdo -NS decreased to 125 -nephro consult, Dr. Valerio Transaminitis -improving -Hep C + substance abuse -trazodone 50mg hs -clonidine .1mg q6 prn -atarax 25mg q4 prn -psych, Dr. Lancaster Ppx -heparin 5000 q12 <Varinder Lopez H - Last Filed: 05/08/18 15:07> Objective - Vital Signs/Intake and Output Vital Signs (last 24 hours): Temp Pulse Resp BP Pulse Ox 98.5 F 60 20 130/85 95 05/08/18 08:34 05/08/18 08:34 05/08/18 08:34 05/08/18 08:34 05/08/18 08:34 Intake and Output: 05/08/18 05/08/18 06:59 18:59 Intake Total 1840 1500 Balance 1840 1500 - Medications Medications: Current Medications Buprenorphine HCl (Subutex) 8 mg SL DAILY [facility] Last Admin: 05/08/18 11:43 Dose: 8 mg Buprenorphine HCl (Subutex) 4 mg SL QPM [facility] Clonidine HCl (Catapres) 0.1 mg PO Q6 PRN PRN Reason: Anxiety Last Admin: 05/08/18 05:59 Dose: 0.1 mg Gabapentin (Neurontin) 100 mg PO TID [facility] Last Admin: 05/08/18 13:36 Dose: 100 mg Heparin Sodium (Porcine) (Heparin) 5,000 units SC Q12 [facility] Last Admin: 05/08/18 09:06 Dose: 5,000 units Hydroxyzine HCl (Atarax) 25 mg PO Q4H PRN PRN Reason: Anxiety Last Admin: 05/08/18 10:36 Dose: 25 mg Piperacillin Sod/Tazobactam Sod (Zosyn 2.25 Gm Iv Premix) 2.25 gm in 50 mls @ 100 mls/hr IVPB Q8H [facility]; Protocol Last Admin: 05/08/18 09:54 Dose: 100 mls/hr Sodium Chloride (Sodium Chloride 0.9%) 1,000 mls @ 125 mls/hr IV .Q8H [facility] Last Admin: 05/08/18 13:34 Dose: 125 mls/hr Trazodone HCl (Desyrel) 50 mg PO HS [facility] Last Admin: 05/07/18 21:41 Dose: 50 mg - Labs Labs: 05/08/18 07:10 05/08/18 07:10 Attending/Attestation - Attestation I have personally seen and examined this patient.: Yes I have fully participated in the care of the patient.: Yes I have reviewed all pertinent clinical information, including history, physical exam and plan: Yes Notes (Text): 05/08/18 15:07 Medical attending: Patient was seen and examined by me, I reviewed the above note by medical device sales And agree with the above note Patient remains on intravenous fluids, a serum CPK is decreasing now down to 11,000. Creatinine is also stable as well. The patient reports that he is producing a lot of urine and appears clear to him. His right arm is quite swollen. Particularly the upper humerus area as well as into the elbow and down to about the mid forearm. He is not able to raise his arm greater than 90. He says due to pain area this is the side that he had been laying on for a prolonged period of time. We will check a upper extremity venous Doppler just in the case that he may have an upper extremity DVT. It started been done but were currently pending on a r ead at this moment thank you Varinder Lopez
[2018-05-08 07:27] LABS: BASO % 0.4 % (0.0-2.0); EOS # 0.2 K/uL (0.0-0.7); EOS % 3.3 % (0.0-4.0); HEMOGLOBIN 12.4 g/dL (12.0-18.0); LYMPH # 1.4 K/uL (1.0-4.3); MEAN CELL VOLUME 84.9 fL (80.0-94.0); MEAN CORPUSCULAR HEMOGLOBIN 30.3 pg (27.0-31.0); MEAN CORPUSCULAR HGB CONC 35.7 g/dL (33.0-37.0); MEAN PLATELET VOLUME 7.2 fL (7.2-11.7); MONO # 0.4 K/uL (0.0-0.8); MONO % 6.5 % (0.0-10.0); NEUT # 4.1 K/uL (1.8-7.0); NEUT % 66.8 % (50.0-75.0); RBC 4.09 Mil/uL (4.40-5.90); RED CELL DISTRIBUTION WIDTH 14.8 % (11.5-14.5); WHITE BLOOD COUNT 6.1 K/uL (4.8-10.8)
[2018-05-08 07:59] LABS: ALB/GLOB RATIO 1.3 (1.0-2.1); ALBUMIN 3.4 g/dL (3.5-5.0); ALT/SGPT 103 U/L (21-72); AST/SGOT 249 U/L (17-59); BLOOD UREA NITROGEN 9 mg/dL (9-20); CALCIUM 8.4 mg/dl (8.6-10.4); GFR NON-AFRICAN AMERICAN > 60
--- NOTE | 2018-05-08 08:45 | CP.PCM.PN ---
Subjective - Date & Time of Evaluation Date of Evaluation: 05/08/18 Time of Evaluation: 08:00 - Subjective Subjective: Patient seen and examined sitting at bedside. Pain continues to improve. C/o swelling travelling from shoulder to elbow. Denies CP/SOB/fever/FLEMING. Objective - Vital Signs/Intake and Output Vital Signs (last 24 hours): Temp Pulse Resp BP Pulse Ox 98.5 F 60 20 130/85 95 05/08/18 08:34 05/08/18 08:34 05/08/18 08:34 05/08/18 08:34 05/08/18 08:34 Intake and Output: 05/08/18 05/08/18 06:59 18:59 Intake Total 1840 Balance 1840 - Medications Medications: Current Medications Clonidine HCl (Catapres) 0.1 mg PO Q6 PRN PRN Reason: Anxiety Last Admin: 05/08/18 05:59 Dose: 0.1 mg Gabapentin (Neurontin) 100 mg PO TID [facility] Last Admin: 05/07/18 17:31 Dose: 100 mg Heparin Sodium (Porcine) (Heparin) 5,000 units SC Q12 [facility] Last Admin: 05/07/18 21:41 Dose: 5,000 units Hydroxyzine HCl (Atarax) 25 mg PO Q4H PRN PRN Reason: Anxiety Last Admin: 05/08/18 04:16 Dose: 25 mg Sodium Chloride (Sodium Chloride 0.9%) 1,000 mls @ 200 mls/hr IV .Q5H [facility] Last Admin: 05/08/18 04:13 Dose: Not Given Piperacillin Sod/Tazobactam Sod (Zosyn 2.25 Gm Iv Premix) 2.25 gm in 50 mls @ 100 mls/hr IVPB Q8H [facility]; Protocol Last Admin: 05/08/18 01:17 Dose: 100 mls/hr Influenza Virus Vaccine (Fluzone Quad [id number]) 60 mcg IM .ONCE ONE Stop: 05/08/18 10:01 Pneumococcal Polyvalent Vaccine (Pneumovax 23 Vaccine) 0.5 ml IM .ONCE ONE Stop: 05/08/18 10:01 Trazodone HCl (Desyrel) 50 mg PO HS [facility] Last Admin: 05/07/18 21:41 Dose: 50 mg - Labs Labs: 05/08/18 07:10 05/08/18 07:10 - Extremities Exam Additional comments: RUE: deltoid tender, shoulder comp tight but compressible area of erythema continue to decrease in size related to ER markings 3 blisters lateral shoulder healing well sensation and motor intact AXN/MN/UN/RN radial pulse intact Assessment and Plan (1) Rhabdomyolysis Assessment & Plan: Patient with acute rhabdomylosis of right deltoid -patient symptoms continues to improve, swelling traveling down with gravity, re-iterated importance of elevating RUE -recommend continue conservative management with IV hydration, no surgery indicated at this time -above d/w Dr. Boogie in agreement Status: Acute
[2018-05-08] MEDS ORDERED: Pneumococcal 23-Valent Vaccine IM ONE (10:00)
[2018-05-08] MEDS ORDERED: Influenza Vaccine 60 MCG/0.5 ML SYR (3 yr & up) IM ONE (10:00)
[2018-05-08] MEDS ORDERED: Buprenorphine Hydrochloride 2 mg SL ONE (11:30)
[2018-05-08] MEDS: Buprenorphine Hydrochloride 8 mg SL SCH (11:43)
[2018-05-08] MEDS ORDERED: Buprenorphine Hydrochloride 2 mg SL SCH (18:00)
[2018-05-08 19:07] LABS: URINE BACTERIA RARE (<OCC); URINE BILIRUBIN NEGATIVE (NEGATIVE); URINE BLOOD NEGATIVE (NEGATIVE); URINE CLARITY Clear (Clear); URINE COLOR Straw (YELLOW); URINE GLUCOSE (UA) NORMAL (Normal); URINE LEUKOCYTE ESTERASE NEG Leu/uL (Negative); URINE PROTEIN NEGATIVE (NEGATIVE); URINE UROBILINOGEN NORMAL mg/dL (0.2-1.0)
[2018-05-08] MEDS ORDERED: Buprenorphine Hydrochloride 8 mg SL ONE (20:00)
[2018-05-09] MEDS: Piperacill/Tazo 2.25gm in Dex 2.25 GM/50 ML BAG IVPB SCH ×2 (00:36→11:27)
[2018-05-09] MEDS: Sodium Chloride 0.9% 1,000 ML IV SCH (05:45)
--- NOTE | 2018-05-09 08:57 | CP.PCM.PN ---
Subjective - Date & Time of Evaluation Date of Evaluation: 05/09/18 Time of Evaluation: 08:54 - Subjective Subjective: Patient complaining that his elbow and hand are now hurting. Shoulder pain is better. No new complaints. Review of Systems - Review of Systems All systems: reviewed and no additional remarkable complaints except - Constitutional Additional comments: no fever/chills - Cardiovascular Cardiovascular: UNREMARKABLE - Respiratory Respiratory: UNREMARKABLE - Gastrointestinal Gastrointestinal: UNREMARKABLE - Genitourinary Genitourinary: UNREMARKABLE - Musculoskeletal Musculoskeletal: As Par HPI - Integumentary Integumentary: Sores - Neurological Neurological: UNREMARKABLE - Hematologic/Lymphatic Hematologic: UNREMARKABLE Objective - Vital Signs/Intake and Output Vital Signs (last 24 hours): Temp Pulse Resp BP Pulse Ox 98.1 F 61 20 157/95 H 97 05/08/18 15:21 05/08/18 15:21 05/08/18 15:21 05/08/18 15:21 05/08/18 15:21 Intake and Output: 05/09/18 05/09/18 06:59 18:59 Intake Total 2640 Output Total 800 Balance 1840 - Medications Medications: Current Medications Buprenorphine HCl (Subutex) 8 mg SL DAILY [facility] Last Admin: 05/08/18 11:43 Dose: 8 mg Buprenorphine HCl (Subutex) 4 mg SL QPM [facility] Last Admin: 05/08/18 17:43 Dose: 4 mg Clonidine HCl (Catapres) 0.1 mg PO Q6 PRN PRN Reason: Anxiety Last Admin: 05/09/18 04:53 Dose: 0.1 mg Gabapentin (Neurontin) 100 mg PO TID [facility] Last Admin: 05/08/18 17:43 Dose: 100 mg Heparin Sodium (Porcine) (Heparin) 5,000 units SC Q12 [facility] Last Admin: 05/08/18 21:27 Dose: 5,000 units Hydroxyzine HCl (Atarax) 25 mg PO Q4H PRN PRN Reason: Anxiety Last Admin: 05/09/18 06:25 Dose: 25 mg Piperacillin Sod/Tazobactam Sod (Zosyn 2.25 Gm Iv Premix) 2.25 gm in 50 mls @ 100 mls/hr IVPB Q8H [facility]; Protocol Last Admin: 05/09/18 00:36 Dose: 100 mls/hr Sodium Chloride (Sodium Chloride 0.9%) 1,000 mls @ 125 mls/hr IV .Q8H [facility] Last Admin: 05/09/18 05:45 Dose: 125 mls/hr Trazodone HCl (Desyrel) 50 mg PO HS [facility] Last Admin: 05/08/18 21:27 Dose: 50 mg - Labs Labs: 05/08/18 07:10 05/08/18 07:10 - Constitutional Appears: Well, No Acute Distress - Head Exam Head Exam: ATRAUMATIC - Respiratory Exam Respiratory Exam: NORMAL BREATHING PATTERN - Cardiovascular Exam Additional comments: +radial pulse - Extremities Exam Additional comments: RUE: sensation intact dependent swelling to forearm and hand, instructed patient to elevate and encourage AROM of fingers/wrist/elbow shoulder swollen but soft, swelling worse around elbow, encourage elevation forearm and hand mild swelling but soft +full ROM fingers/wrist with good strength elbow flexion limited by pain due to swelling - Neurological Exam Neurological Exam: Alert, Awake, Oriented x3 Neuro motor strength exam: Right Upper Extremity: 5 (pain due to swelling) - Psychiatric Exam Psychiatric exam: Normal Affect, Normal Mood - Skin Skin Exam: Warm (ecchymosis to elbow, swelling to shoulder, elbow, forearm, hand, noted healing wounds on lateral shoulder from tension blisters, no surr ounding erythema, still raw with small amount serous drainage on dressing) Assessment and Plan (1) Swelling of right upper extremity Assessment & Plan: edema now in hand/forearm, needs elevation encourage AROM of same CPK downtrending daily IVF mgmt as per medical team superficial wound care for blister site no orthopedic intervention indicated d/w Dr. Boogie, agrees with above Status: Acute (2) Rhabdomyolysis Status: Acute
--- NOTE | 2018-05-09 09:36 | VASCLAB ---
Date of service: 05/08/2018 PROCEDURE: Right Upper Extremity Venous Duplex Exam HISTORY: RUE edema, r/o DVT PRIORS: None. TECHNIQUE: Right upper extremity, internal jugular, subclavian, axillary, brachial, ulnar, radial, basilic and upper cephalic veins were evaluated. Flow was assessed with color Doppler, compressibility, assessment of phasic flow and augmentation response. Report prepared by Poli Marquez, RODRIGO, RVT FINDINGS: RIGHT: 1. Internal Jugular: 1.1. Compressibility - Fully compressible: Thrombus - None : Flow - Phasic: Augmentation -Normal: Reflux - None. 2. Subclavian: 2.1. Compressibility - Fully compressible: Thrombus - None : Flow - Phasic: Augmentation -Normal: Reflux - None. 3. Axillary: 3.1. Compressibility - Fully compressible: Thrombus - None : Flow - Phasic: Augmentation -Normal: Reflux - None. 4. Brachial: 4.1. Compressibility - Fully compressible: Thrombus - None: Flow - Phasic: Augmentation -Normal: Reflux - None. 5. Ulnar: 5.1. Compressibility - Fully compressible: Thrombus - None: Flow - Phasic: Augmentation -Normal: Reflux - None. 6. Radial: 6.1. Compressibility - Fully compressible: Thrombus - None: Flow - Phasic: Augmentation - Normal: Reflux - None. 7. Cephalic: 7.1. Compressibility - Fully compressible: Thrombus - None: Flow - Phasic: Augmentation -Normal: Reflux - None. 8. Basilic: 8.1. Compressibility - Fully compressible: Thrombus - None: Flow - Phasic: Augmentation -Normal: Reflux - None. OTHER FINDINGS: Right: None. IMPRESSION: Right: No evidence of vein thrombosis of the right upper extremity with excellent venous flow. Normal valve function noted of the right side. Normal venous flow noted in the left internal jugular and left subclavian veins.
[2018-05-09 09:51] VITALS: BP 159/92; PULSE 60; TEMP 98.2
[2018-05-09] MEDS ORDERED: Bacitracin Ointment 30 GM TUBE TOP SCH (10:00)
[2018-05-09] MEDS: Buprenorphine Hydrochloride 8 mg SL SCH (11:26)
--- NOTE | 2018-05-09 12:48 | CP.PCM.DIS ---
<Deuce Joseph - Last Filed: 05/09/18 21:13> Provider - Provider Date of Admission: 05/06/18 01:39 Attending physician: Judah Hickman MD Time Spent in preparation of Discharge (in minutes): 180 Diagnosis - Discharge Diagnosis (1) Rhabdomyolysis Status: Acute (2) Swelling of right upper extremity Status: Acute Hospital Course - Lab Results Lab Results: Micro Results 05/05/18 23:10 Blood Blood Culture - Preliminary NO GROWTH AFTER 3 DAYS 05/05/18 23:40 Blood Blood Culture - Preliminary NO GROWTH AFTER 3 DAYS 05/06/18 12:18 Naris MRSA Culture (Admit) - Final MRSA NOT DETECTED 05/06/18 12:18 Urine,Clean Catch Urine Culture - Final No Growth (<1,000 CFU/ML) Most Recent Lab Values WBC 6.1 K/uL (4.8-10.8) 05/08/18 07:10 RBC 4.09 Mil/uL (4.40-5.90) L 05/08/18 07:10 Hgb 12.4 g/dL (12.0-18.0) 05/08/18 07:10 Hct 34.7 % (35.0-51.0) L 05/08/18 07:10 MCV 84.9 fL (80.0-94.0) 05/08/18 07:10 MCH 30.3 pg (27.0-31.0) 05/08/18 07:10 MCHC 35.7 g/dL (33.0-37.0) 05/08/18 07:10 RDW 14.8 % (11.5-14.5) H 05/08/18 07:10 Plt Count 168 K/uL (130-400) 05/08/18 07:10 MPV 7.2 fL (7.2-11.7) 05/08/18 07:10 Neut % (Auto) 66.8 % (50.0-75.0) 05/08/18 07:10 Lymph % (Auto) 23.0 % (20.0-40.0) 05/08/18 07:10 [place] % (Auto) 6.5 % (0.0-10.0) 05/08/18 07:10 Eos % (Auto) 3.3 % (0.0-4.0) 05/08/18 07:10 Baso % (Auto) 0.4 % (0.0-2.0) 05/08/18 07:10 Neut # (Auto) 4.1 K/uL (1.8-7.0) 05/08/18 07:10 Lymph # (Auto) 1.4 K/uL (1.0-4.3) 05/08/18 07:10 [place] # (Auto) 0.4 K/uL (0.0-0.8) 05/08/18 07:10 Eos # (Auto) 0.2 K/uL (0.0-0.7) 05/08/18 07:10 Baso # (Auto) 0.0 K/uL (0.0-0.2) 05/08/18 07:10 pO2 36 mm/Hg (30-55) 05/06/18 12:30 VBG pH 7.32 (7.32-7.43) 05/06/18 12:30 VBG pCO2 50 mmHg (40-60) 05/06/18 12:30 VBG HCO3 23.3 mmol/L 05/06/18 12:30 VBG Total CO2 27.3 mmol/L (22-28) 05/06/18 12:30 VBG O2 Sat (Calc) 76.3 % (40-65) H 05/06/18 12:30 VBG Base Excess -0.9 mmol/L (0.0-2.0) L 05/06/18 12:30 VBG Potassium 4.2 mmol/L (3.6-5.2) 05/06/18 12:30 Sodium 141.0 mmol/l (132-148) 05/06/18 12:30 Chloride 111.0 mmol/L (98-107) H 05/06/18 12:30 Glucose 96 mg/dl (75-110) 05/06/18 12:30 Lactate 0.7 mmol/L (0.7-2.1) 05/06/18 12:30 Sodium 145 mmol/L (132-148) 05/08/18 07:10 Potassium 4.2 mmol/L (3.6-5.2) 05/08/18 07:10 Chloride 108 mmol/L (98-107) H 05/08/18 07:10 Carbon Dioxide 29 mmol/L (22-30) 05/08/18 07:10 Anion Gap 12 (10-20) 05/08/18 07:10 BUN 9 mg/dL (9-20) 05/08/18 07:10 Creatinine 0.6 mg/dL (0.8-1.5) L 05/08/18 07:10 Est GFR ( Amer) > 60 05/08/18 07:10 Est GFR (Non-Af Amer) > 60 05/08/18 07:10 POC Glucose (mg/dL) 113 mg/dL (65-110) H 05/05/18 23:20 Random Glucose 102 mg/dL (75-110) 05/08/18 07:10 Calcium 8.4 mg/dl (8.6-10.4) L 05/08/18 07:10 Phosphorus 1.7 mg/dL (2.5-4.5) L 05/07/18 07:13 Magnesium 1.9 mg/dL (1.6-2.3) 05/07/18 07:13 Total Bilirubin 0.9 mg/dL (0.2-1.3) 05/08/18 07:10 AST 249 U/L (17-59) H D 05/08/18 07:10 ALT 103 U/L (21-72) H 05/08/18 07:10 Alkaline Phosphatase 69 U/L (38-126) 05/08/18 07:10 Total Creatine Kinase 33525 U/L (55-170) H 05/08/18 07:10 Total Protein 5.8 g/dL (6.3-8.3) L 05/08/18 07:10 Albumin 3.4 g/dL (3.5-5.0) L 05/08/18 07:10 Globulin 2.5 gm/dL (2.2-3.9) 05/08/18 07:10 Albumin/Globulin Ratio 1.3 (1.0-2.1) 05/08/18 07:10 Venous Blood Potassium 4.2 mmol/L (3.6-5.2) 05/06/18 12:30 Urine Color Straw (YELLOW) 05/08/18 19:01 Urine Clarity Clear (Clear) 05/08/18 19:01 Urine pH 7.0 (5.0-8.0) 05/08/18 19:01 Ur Specific [place] 1.008 (1.003-1.030) 05/08/18 19:01 Urine Protein Negative mg/dL (NEGATIVE) 05/08/18 19:01 Urine Glucose (UA) Normal mg/dL (Normal) 05/08/18 19:01 Urine Ketones Negative mg/dL (NEGATIVE) 05/08/18 19:01 Urine Blood Negative (NEGATIVE) 05/08/18 19: Urine Nitrate Negative (NEGATIVE) 05/08/18 19: Urine Bilirubin Negative (NEGATIVE) 05/08/18 19: Urine Urobilinogen Normal mg/dL (0.2-1.0) 05/08/18 19:01 Ur Leukocyte Esterase Neg Jeffry/uL (Negative) 05/08/18 19:01 Urine WBC (Auto) < 1 /hpf (0-5) 05/08/18 19:01 Urine RBC (Auto) 27 /hpf (0-3) H 05/06/18 12:18 Ur Squamous Epith Cells 2 /hpf (0-5) 05/06/18 00:00 Urine Bacteria Rare (<OCC) 05/08/18 19: Hyaline Casts 3-5 /lpf (0-2) H 05/06/18 00:00 Random Vancomycin < 5.0 ug/mL 05/07/18 07:13 Urine Opiates Screen Negative (NEGATIVE) 05/06/18 00:00 Urine Methadone Screen Positive (NEGATIVE) H 05/06/18 00:00 Ur Barbiturates Screen Negative (NEGATIVE) 05/06/18 00:00 Ur Phencyclidine Scrn Negative (NEGATIVE) 05/06/18 00:00 Ur Amphetamines Screen Negative (NEGATIVE) 05/06/18 00:00 U Benzodiazepines Scrn Positive (NEGATIVE) 05/06/18 00:00 [place] < 0.2 mmol/L (0.6-1.2) L 05/06/18 12:18 U Oth Cocaine Metabols Negative (NEGATIVE) 05/06/18 00:00 U Cannabinoids Screen Negative (NEGATIVE) 05/06/18 00:00 Alcohol, Quantitative < 10 mg/dl (0-10) 05/05/18 23:32 Hepatitis A IgM Ab Negative (NEGATIVE) 05/06/18 06:46 Hep Bs Antigen Negative (NEGATIVE) 05/06/18 06:46 Hep B Core IgM Ab Negative (NEGATIVE) 05/06/18 06:46 Hepatitis C Antibody Reactive (NEGATIVE) 05/06/18 06:46 - Hospital Course Hospital Course: On admission: This is a 62 year old male with PMH of bipolar disorder, depression, substance abuse with multiple inpatient psychiatric admissions who presents with right upper arm pain and swelling for the past 2 days. Patient is a poor historian. Pt reports that he took Xanax Monday night and fell asleep on the cough, but when he awoke on monday morning he had this upper arm pain and swelling. Pt states the he tried putting diclofenac cream, motrin po and tylenol po without improvement of the pain. Pt was able to handle the pain yesteday during the day, but came in tonight because it was too much and the swelling is moving up more. Pt denies fever, chills, chest pain, numbness or tingling to the arm, recent illness, trauma to the area, recent fall, amphetamine drug use, IV drug use, abdominal pain, n/v/d, dysuria, hematuria, burning on urination. Pt does endorse working out for the "first time in a while" prior to development of symptoms. On hospitalization: Patient was hospitalized for suspicion of compartment syndrome on right upper extremity and rhabdomyolysis. [place] admission [place] [address], Cr was 1.7. UA shows WBC of 45, many bacteria hyaline cats, 2+ protein, 3+ blood. AST/ALT/ALP is 323/92/92. Patient was started on NS IVF @ 200mls/hr. UDS was positive for benzos and methadone. For upper extremity swelling, compartment pressure was checked- 17mmHg anterior compartment, 20mmg Hg posterior compartment (mid arm). Deltoid pressures also checked, 25mmHg anteriorly, 23-24mmHg posteriorly. Pressures are < 30mmHg, no current compartment syndrome, but pressures are elevated. Ortho Dr Boogie was consulted. humerus x ray shows no fracture or dislocation, and marked soft tissue swelling. CT pelvis was ordered due to suspicion of buttocks abscess, results show mild infiltration in the right lateral subcutanous fat without evidence of drainable fluid collection or abscess. CT upper extremity right showed infiltration in the shoulder subcutanous fat without drainable fluid collection. Right upper extremity doppler shows no evidence of vein thrombosis of the right upper extremity with excellent venous flow and normal valve function noted on right side. zosyn 2.25 iv q8 was started. blood culture showed no growth. Nephro Dr Valerio was consulted. CK improved during hospitalization course from 21, 234 to 13, 809 to 11,487. NS was decreased to 125mls/hr upon this improvement. elevated liver enzymes also improved. Psych Dr Lancaster was consulted for hx of substance abuse and was ordered the following medications: trazodone 50mg hs, clonidine .1mg q6 prn, atarax 25mg q4 prn. Patient was placed on DVT prophylaxis with heparin 5000 Q12hrs. On discharge: the following instruction were given to patient: Patient is to follow up with Primary doctor Kendal in one or two weeks after discharge from the hospital, we recommend for your primary doctor to check your blood for a CMP, which checks your renal function, especially your creatinine level which tells how well your kidneys are functioning. Your creatinine level has improved in the past 3 days in the hospital, as well as your creatine phosphokinase improved as well. your primary will keep monitoring these levels for you, so it is important to follow up with your primary doctor. we encourage for you to drink a lot of fluids by mouth, make sure you are always hydrated. Please continue to elevate the right arm, especially at night time. Continue taking your medications at home as indicated and follow up with your primary doctor. if symptoms worsen or recur, please return to the ER. This is a brief summary of patient's hospitalization course. For more information, please visit patient's EMR - Date & Time of H&P Date of H&P: 05/06/18 Time of H&P: 04:20 Discharge Exam - Head Exam Head Exam: ATRAUMATIC, NORMAL INSPECTION, NORMOCEPHALIC - Eye Exam Eye Exam: EOMI, Normal appearance - ENT Exam ENT Exam: Mucous Membranes Moist, Normal Exam - Neck Exam Neck exam: Normal Inspection - Respiratory Exam Respiratory Exam: Clear to PA & Lateral, NORMAL BREATHING PATTERN, UNREMARKABLE. absent: Accessory Muscle Use, Respiratory Distress - Cardiovascular Exam Cardiovascular Exam: REGULAR RHYTHM, +S1, +S2 - GI/Abdominal Exam GI & Abdominal Exam: Normal Bowel Sounds, Unremarkable. absent: Distended, Guarding, Tenderness - Extremities Exam Extremities exam: full ROM Additional comments: Right arm edema, nonpitting, mostly on rt arm, forearm and hands echymosis on proximal aspect of right medial arm non tender to palpation several healing punctures on arm, from compartment pressure testing - Back Exam Back exam: FULL ROM, NORMAL INSPECTION - Neurological Exam Neurological exam: Alert, Normal Gait, Oriented x3 - Psychiatric Exam Psychiatric exam: Flat Affect, Normal Mood - Skin Skin Exam: Dry, Normal Color, Warm Discharge Plan - Follow Up Plan Condition: GOOD Disposition: HOME/ ROUTINE Instructions: Rhabdomyolysis (DC) Additional Instructions: Patient is to follow up with Primary doctor Kendal in one or two weeks after discharge from the hospital, we recommend for your primary doctor to check your blood for a CMP, which checks your renal function, especially your creatinine level which tells how well your kidneys are functioning. Your creatinine level has improved in the past 3 days in the hospital, as well as your creatine phosphokinase improved as well. your primary will keep monitoring these levels for you, so it is important to follow up with your primary doctor. we encourage for you to drink a lot of fluids by mouth, make sure you are always hydrated. Please continue to elevate the right arm, especially at night time. Continue taking your medications at home as indicated and follow up with your primary doctor. if symptoms worsen or recur, please return to the ER. <Varinder Lopez - Last Filed: 05/10/18 09:46> Provider - Provider Date of Admission: 05/06/18 01:39 Attending physician: Judah Hickman MD Hospital Course - Lab Results Lab Results: Micro Results 05/05/18 23:10 Blood Blood Culture - Preliminary NO GROWTH AFTER 3 DAYS 05/05/18 23:40 Blood Blood Culture - Preliminary NO GROWTH AFTER 3 DAYS 05/06/18 12:18 Naris MRSA Culture (Admit) - Final MRSA NOT DETECTED 05/06/18 12:18 Urine,Clean Catch Urine Culture - Final No Growth (<1,000 CFU/ML) Most Recent Lab Values WBC 6.1 K/uL (4.8-10.8) 05/08/18 07:10 RBC 4.09 Mil/uL (4.40-5.90) L 05/08/18 07:10 Hgb 12.4 g/dL (12.0-18.0) 05/08/18 07:10 Hct 34.7 % (35.0-51.0) L 05/08/18 07:10 MCV 84.9 fL (80.0-94.0) 05/08/18 07:10 MCH 30.3 pg (27.0-31.0) 05/08/18 07:10 MCHC 35.7 g/dL (33.0-37.0) 05/08/18 07:10 RDW 14.8 % (11.5-14.5) H 05/08/18 07:10 Plt Count 168 K/uL (130-400) 05/08/18 07:10 MPV 7.2 fL (7.2-11.7) 05/08/18 07:10 Neut % (Auto) 66.8 % (50.0-75.0) 05/08/18 07:10 Lymph % (Auto) 23.0 % (20.0-40.0) 05/08/18 07:10 [place] % (Auto) 6.5 % (0.0-10.0) 05/08/18 07:10 Eos % (Auto) 3.3 % (0.0-4.0) 05/08/18 07:10 Baso % (Auto) 0.4 % (0.0-2.0) 05/08/18 07:10 Neut # (Auto) 4.1 K/uL (1.8-7.0) 05/08/18 07:10 Lymph # (Auto) 1.4 K/uL (1.0-4.3) 05/08/18 07:10 [place] # (Auto) 0.4 K/uL (0.0-0.8) 05/08/18 07:10 Eos # (Auto) 0.2 K/uL (0.0-0.7) 05/08/18 07:10 Baso # (Auto) 0.0 K/uL (0.0-0.2) 05/08/18 07:10 pO2 36 mm/Hg (30-55) 05/06/18 12:30 VBG pH 7.32 (7.32-7.43) 05/06/18 12:30 VBG pCO2 50 mmHg (40-60) 05/06/18 12:30 VBG HCO3 23.3 mmol/L 05/06/18 12:30 VBG Total CO2 27.3 mmol/L (22-28) 05/06/18 12:30 VBG O2 Sat (Calc) 76.3 % (40-65) H 05/06/18 12:30 VBG Base Excess -0.9 mmol/L (0.0-2.0) L 05/06/18 12:30 VBG Potassium 4.2 mmol/L (3.6-5.2) 05/06/18 12:30 Sodium 141.0 mmol/l (132-148) 05/06/18 12:30 Chloride 111.0 mmol/L (98-107) H 05/06/18 12:30 Glucose 96 mg/dl (75-110) 05/06/18 12:30 Lactate 0.7 mmol/L (0.7-2.1) 05/06/18 12:30 Sodium 145 mmol/L (132-148) 05/08/18 07:10 Potassium 4.2 mmol/L (3.6-5.2) 05/08/18 07:10 Chloride 108 mmol/L (98-107) H 05/08/18 07:10 Carbon Dioxide 29 mmol/L (22-30) 05/08/18 07:10 Anion Gap 12 (10-20) 05/08/18 07:10 BUN 9 mg/dL (9-20) 05/08/18 07:10 Creatinine 0.6 mg/dL (0.8-1.5) L 05/08/18 07:10 Est GFR ( Amer) > 60 05/08/18 07:10 Est GFR (Non-Af Amer) > 60 05/08/18 07:10 POC Glucose (mg/dL) 113 mg/dL (65-110) H 05/05/18 23:20 Random Glucose 102 mg/dL (75-110) 05/08/18 07:10 Calcium 8.4 mg/dl (8.6-10.4) L 05/08/18 07:10 Phosphorus 1.7 mg/dL (2.5-4.5) L 05/07/18 07:13 Magnesium 1.9 mg/dL (1.6-2.3) 05/07/18 07:13 Total Bilirubin 0.9 mg/dL (0.2-1.3) 05/08/18 07:10 AST 249 U/L (17-59) H D 05/08/18 07:10 ALT 103 U/L (21-72) H 05/08/18 07:10 Alkaline Phosphatase 69 U/L (38-126) 05/08/18 07:10 Total Creatine Kinase 02091 U/L (55-170) H 05/08/18 07:10 Total Protein 5.8 g/dL (6.3-8.3) L 05/08/18 07:10 Albumin 3.4 g/dL (3.5-5.0) L 05/08/18 07:10 Globulin 2.5 gm/dL (2.2-3.9) 05/08/18 07:10 Albumin/Globulin Ratio 1.3 (1.0-2.1) 05/08/18 07:10 Venous Blood Potassium 4.2 mmol/L (3.6-5.2) 05/06/18 12:30 Urine Color Straw (YELLOW) 05/08/18 19:01 Urine Clarity Clear (Clear) 05/08/18 19:01 Urine pH 7.0 (5.0-8.0) 05/08/18 19:01 Ur Specific [place] 1.008 (1.003-1.030) 05/08/18 19:01 Urine Protein Negative mg/dL (NEGATIVE) 05/08/18 19:01 Urine Glucose (UA) Normal mg/dL (Normal) 05/08/18 19:01 Urine Ketones Negative mg/dL (NEGATIVE) 05/08/18 19:01 Urine Blood Negative (NEGATIVE) 05/08/18 19: Urine Nitrate Negative (NEGATIVE) 05/08/18 19: Urine Bilirubin Negative (NEGATIVE) 05/08/18 19:01 Urine Urobilinogen Normal mg/dL (0.2-1.0) 05/08/18 19:01 Ur Leukocyte Esterase Neg Jeffry/uL (Negative) 05/08/18 19:01 Urine WBC (Auto) < 1 /hpf (0-5) 05/08/18 19:01 Urine RBC (Auto) 27 /hpf (0-3) H 05/06/18 12:18 Ur Squamous Epith Cells 2 /hpf (0-5) 05/06/18 00:00 Urine Bacteria Rare (<OCC) 05/08/18 19:01 Hyaline Casts 3-5 /lpf (0-2) H 05/06/18 00:00 Random Vancomycin < 5.0 ug/mL 05/07/18 07:13 Urine Opiates Screen Negative (NEGATIVE) 05/06/18 00:00 Urine Methadone Screen Positive (NEGATIVE) H 05/06/18 00:00 Ur Barbiturates Screen Negative (NEGATIVE) 05/06/18 00:00 Ur Phencyclidine Scrn Negative (NEGATIVE) 05/06/18 00:00 Ur Amphetamines Screen Negative (NEGATIVE) 05/06/18 00:00 U Benzodiazepines Scrn Positive (NEGATIVE) 05/06/18 00:00 [place] < 0.2 mmol/L (0.6-1.2) L 05/06/18 12:18 U Oth Cocaine Metabols Negative (NEGATIVE) 05/06/18 00:00 U Cannabinoids Screen Negative (NEGATIVE) 05/06/18 00:00 Alcohol, Quantitative < 10 mg/dl (0-10) 05/05/18 23:32 Hepatitis A IgM Ab Negative (NEGATIVE) 05/06/18 06:46 Hep Bs Antigen Negative (NEGATIVE) 05/06/18 06:46 Hep B Core IgM Ab Negative (NEGATIVE) 05/06/18 06:46 Hepatitis C Antibody Reactive (NEGATIVE) 05/06/18 06:46 Attending/Attestation - Attestation I have personally seen and examined this patient.: Yes I have fully participated in the care of the patient.: Yes I have reviewed all pertinent clinical information, including history, physical exam and plan: Yes Notes (Text): 05/10/18 09:43 Medical attending: Patient was seen and examined by me. Agree with the above note by the resident It should be noted/recorded that the manner in which the patient has treated the nurses in the hospital has been really poorly. He has been yelling, almost threatening at times and it makes me uncomfortable the way he is acting. He is often obeserved in the hallway or walking to the nursing station with demands. Regardless his CPK has been decreasing significantly, also the creatine is now under 1 for a few days as well. The arm swelling has decreased as well. We explained to him that he needs to follow up with his PCP for basic labwork to monitor his renal function. Varinder Lopez
[2018-05-14 07:59] VITALS: O2SAT 98
== END 2018-05-09 12:02 | disposition home or self-care (01) | DRG 351 ==
LOC: C.ER 22:31 → C.3T 05-06 01:39
PROVIDERS: ADMIT Family Medicine; ATTEND Family Medicine
PROC: HZ2ZZZZ Detoxification Services for Substance Abuse Treatment (ICD-10-PCS; principal; 2018-05-06)
PROC: HZ52ZZZ Individual Psychotherapy for Substance Abuse Treatment, Cognitive-Behavioral (ICD-10-PCS; 2018-05-06)
PROC: HZ59ZZZ Individual Psychotherapy for Substance Abuse Treatment, Supportive (ICD-10-PCS; 2018-05-06)
PROC: HZ56ZZZ Individual Psychotherapy for Substance Abuse Treatment, Psychoeducation (ICD-10-PCS; 2018-05-06)
PROC: HZ42ZZZ Group Counseling for Substance Abuse Treatment, Cognitive-Behavioral (ICD-10-PCS; 2018-05-06)
PROC: HZ46ZZZ Group Counseling for Substance Abuse Treatment, Psychoeducation (ICD-10-PCS; 2018-05-06)
PROC: GZHZZZZ Group Psychotherapy (ICD-10-PCS; 2018-05-06)
PROC: GZ58ZZZ Individual Psychotherapy, Cognitive-Behavioral (ICD-10-PCS; 2018-05-06)
PROC: GZ56ZZZ Individual Psychotherapy, Supportive (ICD-10-PCS; 2018-05-06)
DX: M62.82 Rhabdomyolysis (principal); N17.9 Acute kidney failure, unspecified; F13.230 Sedative, hypnotic or anxiolytic dependence with withdrawal, uncomplicated; B19.20 Unspecified viral hepatitis C without hepatic coma; F11.20 Opioid dependence, uncomplicated; L03.113 Cellulitis of right upper limb; L03.317 Cellulitis of buttock; N39.0 Urinary tract infection, site not specified; F41.9 Anxiety disorder, unspecified; F31.9 Bipolar disorder, unspecified; F17.200 Nicotine dependence, unspecified, uncomplicated

== ENCOUNTER 2018-12-21 11:50 | Inpatient (IN) | payer MEDICAID ==
[2018-12-21 11:50] VITALS: BMI 27.3
[2018-12-21 13:28] LABS: BASO % 0.6 % (0.0-2.0); EOS # 0.1 K/uL (0.0-0.7); EOS % 2.5 % (0.0-4.0); LYMPH # 1.5 K/uL (1.0-4.3); LYMPH % 25.8 % (20.0-40.0); MEAN CELL VOLUME 85.5 fL (80.0-94.0); MEAN CORPUSCULAR HGB CONC 35.1 g/dL (33.0-37.0); MEAN PLATELET VOLUME 7.4 fL (7.2-11.7); MONO # 0.4 K/uL (0.0-0.8); MONO % 7.4 % (0.0-10.0); NEUT # 3.7 K/uL (1.8-7.0); NEUT % 63.7 % (50.0-75.0); NRBC % 0.1 % (0.0-2.0); RBC 4.82 Mil/uL (4.40-5.90); WHITE BLOOD COUNT 5.7 K/uL (4.8-10.8)
[2018-12-21 13:29] LABS: HEMOGLOBIN 14.4 g/dL (12.0-18.0)
[2018-12-21 13:40] LABS: ALB/GLOB RATIO 1.7 (1.0-2.1); ALBUMIN 4.4 g/dL (3.5-5.0); ALT/SGPT 26 U/L (21-72); AST/SGOT 29 U/L (17-59); BLOOD UREA NITROGEN 17 mg/dL (9-20); CALCIUM 9.5 mg/dl (8.6-10.4); GFR NON-AFRICAN AMERICAN > 60
[2018-12-21 13:54] LABS: URINE BILIRUBIN NEGATIVE (NEGATIVE); URINE CLARITY Clear (Clear); URINE COLOR Yellow (YELLOW); URINE GLUCOSE (UA) NORMAL (Normal); URINE LEUKOCYTE ESTERASE NEG Leu/uL (Negative); URINE PROTEIN NEGATIVE (NEGATIVE); URINE UROBILINOGEN NORMAL mg/dL (0.2-1.0)
[2018-12-21 14:03] LABS: URINE BLOOD NEGATIVE (NEGATIVE)
[2018-12-21 14:27] LABS: OPIATES, UR NEGATIVE (NEGATIVE); PHENCYCLIDINE, UR NEGATIVE (NEGATIVE)
[2018-12-21 14:48] LABS: BARBITURATES, UR POSITIVE (NEGATIVE); BENZODIAZEPINES, UR POSITIVE (NEGATIVE)
--- NOTE | 2018-12-21 15:14 | C.PDOC ---
History Of Present Illness 63 y/o male pt presents to the ER c/o depression. Associated sx includes suicidal ideation. Pt denies HI or any other complaints or associated sx at this time. Time Seen by Provider: 12/21/18 12:02 Chief Complaint (Nursing): Psychiatric Evaluation History Per: Patient History/Exam Limitations: no limitations Onset/Duration Of Symptoms: Days Current Symptoms Are (Timing): Still Present Suicide/Self Injury Attempted (Context): None Associated Symptoms: Depression, Suicidal Thoughts Past Medical History Reviewed: Historical Data, Nursing Documentation, Vital Signs Vital Signs: Last Vital Signs Temp 98.6 F 12/21/18 11:56 Pulse 68 12/21/18 11:56 Resp 20 12/21/18 11:56 BP 149/100 H 12/21/18 11:56 Pulse Ox 96 12/21/18 11:56 Primary Care Provider: Non [facility] Provider, - Medical History PMH: Anxiety, Bipolar Disorder, Depression - [facility] Procedures DETOXIFICATION SERVICES FOR SUBSTANCE ABUSE TREATMENT (05/06/18) GROUP MOPPER FOR SUBSTANCE ABUSE TREATMENT, PSYCHOEDUCATION (05/06/18) GROUP MOPPER FOR SUBSTANCE ABUSE, COGNITIVE BEHAVIORAL (05/06/18) GROUP PSYCHOTHERAPY (05/06/18) INDIV MOPPER FOR SUBSTANCE ABUSE, COGNITIVE BEHAVIORAL (09/16/16) INDIV PSYCHOTHERAPY FOR SUBSTANCE ABUSE TREATMENT, SUPPORT (05/06/18) INDIV PSYCHOTHERAPY FOR SUBSTANCE ABUSE, COGNITIV BEHAVIORAL (05/06/18) INDIV PSYCHOTHERAPY FOR SUBSTANCE ABUSE, PSYCHOEDUCATION (05/06/18) INDIVIDUAL PSYCHOTHERAPY, COGNITIVE-BEHAVIORAL (05/06/18) INDIVIDUAL PSYCHOTHERAPY, SUPPORTIVE (05/06/18) MEDICATION MANAGEMENT (08/30/17) MEDS MGMT FOR SUBSTANCE ABUSE TREATMENT, METHADONE MAINT (10/13/16) Family History: States: Unknown Family Hx - Social History Hx Alcohol Use: No Hx Substance Use: Yes (heroine) - Immunization History Hx Tetanus Toxoid Vaccination: No Hx Influenza Vaccination: No Hx Pneumococcal Vaccination: No Review Of Systems Psych: Positive for: Depression, Suicidal ideation. Negative for: Other (HI) Physical Exam - Physical Exam Appears: Non-toxic, No Acute Distress Skin: Warm, Dry Head: Atraumatic, Normacephalic Eye(s): bilateral: EOMI Oral Mucosa: Moist Throat: Normal Neck: Normal ROM, Supple Chest: Symmetrical Cardiovascular: Rhythm Regular Respiratory: Normal Breath Sounds Gastrointestinal/Abdominal: Soft, No Tenderness Back: No CVA Tenderness Extremity: Normal ROM (x4) Neurological/Psych: Oriented x3, Normal Speech ED Course And Treatment - Laboratory Results Result Diagrams: 12/21/18 13:25 12/21/18 13:25 Lab Results: Total Bilirubin 0.5 mg/dL (0.2-1.3) 12/21/18 13:25 AST 29 U/L (17-59) 12/21/18 13:25 ALT 26 U/L (21-72) 12/21/18 13:25 Alkaline Phosphatase 74 U/L (38-126) 12/21/18 13:25 Total Protein 7.0 g/dL (6.3-8.3) 12/21/18 13:25 Albumin 4.4 g/dL (3.5-5.0) 12/21/18 13:25 Globulin 2.6 gm/dL (2.2-3.9) 12/21/18 13:25 Albumin/Globulin Ratio 1.7 (1.0-2.1) 12/21/18 13:25 Urine Color Yellow (YELLOW) 12/21/18 14:00 Urine Clarity Clear (Clear) 12/21/18 14:00 Urine pH 7.0 (5.0-8.0) 12/21/18 14:00 Ur Specific [place] 1.016 (1.003-1.030) 12/21/18 14:00 Urine Protein Negative mg/dL (NEGATIVE) 12/21/18 14:00 Urine Glucose (UA) Normal mg/dL (Normal) 12/21/18 14:00 Urine Ketones Negative mg/dL (NEGATIVE) 12/21/18 14:00 Urine Blood Negative (NEGATIVE) 12/21/18 14:00 Urine Nitrate Negative (NEGATIVE) 12/21/18 14:00 Urine Bilirubin Negative (NEGATIVE) 12/21/18 14:00 Urine Urobilinogen Normal mg/dL (0.2-1.0) 12/21/18 14:00 Ur Leukocyte Esterase Neg Jeffry/uL (Negative) 12/21/18 14:00 Urine RBC (Auto) < 1 /hpf (0-3) 12/21/18 14:00 O2 Sat by Pulse Oximetry: 96 (RA) Pulse Ox Interpretation: Normal Progress Note: Plans: -- labs Disposition - Disposition - Scribe Statement The provider has reviewed the documentation as recorded by the Scribe Vivas Do Provider Attestation: All medical record entries made by the Scribe were at my direction and personally dictated by me. I have reviewed the chart and agree that the record accurately reflects my personal performance of the history, physical exam, medical decision making, and the department course for this patient. I have also personally directed, reviewed, and agree with the discharge instructions and disposition.
[2018-12-21 16:13] VITALS: O2SAT 99
--- NOTE | 2018-12-21 17:28 | PCM.BM ---
<Saba Herrera - Last Filed: 12/21/18 17:25> Treatment Plan Problems - Problems identified on initial assessmt Feelings Worthlessness Date Initiated: 12/21/18 Time Initiated: 17:27 Assessment reference: NA Status: Active Self Care Deficit Date Initiated: 12/21/18 Time Initiated: 17:27 Assessment reference: NA Status: Active Feeling Hopelessness/Helplessness Date Initiated: 12/21/18 Time Initiated: 17:26 Assessment reference: NA Status: Active Treatment assets and liabiliti Patient Assests: adapts well, cooperative, ADL independent, negotiates basic needs, cognitively intact Patient Liabilities: live alone, financial problems, substance abuse (Xanax and hx of Heroin), medical problems (none) - Milieu Protocol Maintain good personal hygiene: daily Encourage regular showers, daily Remind patient to perform daily oral care, daily Assist patient to perform ADL's (Self care), other Assist patient to perform ADL's Conduct patient checks and document Observation sheet: Q15 minutes (Safety) Maintain personal safety: every shift Educate patient to report safety concerns to staff, every shift Monitor environment for contraband/sharps Medication safety: Monitor for expected outcome, potential side effects: every shift, Assess barriers to learning: every shift, Assess readiness for medication education: every shift <Angie Jim - Last Filed: 12/24/18 14:21> Family Contact Family involvement: Patient does not wish Family/SO involvement Family contact: Patient declines to allow family contact at present - Goals for Treatment Patient goals for treatment: "I want to go back to [facility] outpatient program." Discharge/Continuing Care - Education Needs Education Needs: Patient Medication, Patient Diagnosis/Disease Process, Patient Coping Skills, Patient Anger Management skills - Discharge Discharge Criteria: Free of Suicidal thoughts, Free of agitation, Normal sleep pattern, Ability to care for self, No longer exhibiting s/s of withdrawal, Reduction of target symptoms Discharge to:: Home - Treatment Team Participation Discussed with Family/SO: No Was Patient/Family/SO present at Treatment Team Meeting: Yes <Rachelle Schaffer - Last Filed: 12/24/18 14:44> - Diagnosis (1) Bipolar disorder Status: Acute Interventions: 12/24/18 14:44 * Assess/adjust medications daily and /or as needed * See patient on an individual basis 7x/week to assess level of manic behaviors and stability * Discuss risks, benefits, side effects and alternatives of medications *
[2018-12-22 06:35] VITALS: RESP 18
[2018-12-22] MEDS ORDERED: Buprenorphine Hydrochloride 2 mg SL ONE (10:44)
--- NOTE | 2018-12-22 10:44 | PCM.PSYCH ---
Initial Psychiatric Evaluation - Initial Psychiatric Evaluation Type of Admission: Voluntary Legal Status: Capacity Chief Complaint (in patient's own words): I was feeling agitated..' History of Present Illness and Precipitating Events: Pt is a 63 year old male, who came to the hospital with increasingly depressed mood and paranoia, and suicidal ideation. Patient has a long history of bipolar disorder and history of multiple inpatient psychiatric hospitalizations. He was last discharged from [facility] last year. As per the patient he is currently involved with outpatient program in [facility]. Where he gets his Suboxone as well. Patient remained a poor historian. He was superficially cooperative but guarded about the details. He appears paranoid and delusional about the family. Patient reported that he has been feeling depressed for approximately one month, and that "this time it's different." Pt reported that he is depressed because he feels his brothers and sisters do not care about him after he raised them and cared for them since the age of 14. Patient explained that his siblings decided to sell his mother's home which he purchased and currently resides in. Pt reported he has to move out on February 04, 2019. Pt reported that he has a history of three SI attempts in the past with the most recent attempt being in 2018. Patient reported that he attempted to commit suicide by overdosing during all three attempts. Pt reported that before he commits suicide he would like to "make sure my grandchildren and my children receive their share of my properties and gomez then it'll time to go." Pt reports depressed mood, feelings of hopelessness and worthlessness. He also reports irritability, agitation, racing thoughts poor focus and poor co ncentration. He appears somewhat paranoid and delusional however he denies any auditory or visual hallucinations. He also reports abusing prescribed Xanax. He reports that he is taking higher dose of Xanax daily from 2 to 4 mg. He denies any recent substance abuse. Past medical history None reported Current Medications: Active Medications Generic Name Dose Route Start Last Admin Trade Name Freq PRN Reason Stop Dose Admin Gabapentin 300 mg 12/21/18 18:00 12/22/18 09:06 Neurontin PO 300 mg TID MARLA Administration Lorazepam 1 mg 12/21/18 17:55 12/22/18 09:06 Ativan PO 1 mg Q6H PRN Administration Anxiety Pneumococcal Polyvalent Vaccine 0.5 ml 12/25/18 10:00 Pneumovax 23 Vaccine IM 12/25/18 10:01 .ONCE ONE Trazodone HCl 150 mg 12/21/18 22:30 12/21/18 22:39 Desyrel PO 150 mg HS PRN Administration Insomnia Past Psychiatric History - Past Psychiatric History Previous Treatment History: Inpatient Pertinent Medical Hx (Current Medical&Sleep Prob, Allergies): Allergies Allergy/AdvReac Type Severity Reaction Status Date / Time No Known Allergies Allergy Verified 05/05/18 22:41 Buprenorphine HCl/Naloxone HCl [Suboxone 4 mg-1 mg Sl Film] 1 each SL TID 05/05/18 Gabapentin [Neurontin] 100 mg PO TID 05/05/18 traZODone [Desyrel] 100 mg PO DAILY 05/06/18 Review of Systems - Review of Systems All systems: reviewed and no additional remarkable complaints except - Psychiatric Psychiatric: Anxiety, Depression, Hopelessness, Irritability, Suicidal Ideation Mental Status Examination - Personal Presentation Personal Presentation: Looks stated age - Affect Affect: Constricted, Depressed - Motor Activity Motor Activity: Calm - Reliability in Providing Information Reliability in Providing Information: Good - Speech Speech: Organized - Mood Mood: Depressed, Anxious - Formal Thought Process Formal Thought Process: No Impairment - Obsessions/Compulsions Obsessions: No Compulsions: No - Cognitive Functions Orientation: Person, Place, Situation, Time Sensorium: Alert Attention/Concentration: Attentive Abstract Thinking: Randolph Estimate of Intelligence: Below average Judgement: Imparied, as evidence by: Poor judgement, Imparied, as evidence by: Lack of insight into illness - Risk Risk: Suicidal, Withdrawal, Diminished functioning - Limitations Limitations: Living alone DSM 5 DX - DSM 5 DSM 5 Diagnosis: Bipolar disorder mixed severe with psychotic features Sedative/hypnotic use disorder severe - Recommended/Plan of Treatment Treatment Recommendations and Plan of Treatment: Bipolar disorder mixed severe with psychotic features Sedative/hypnotic use disorder severe CBT Separation Supportive therapy and group therapy Trileptal for mood Trazodone for insomnia Hydroxyzine for anxiety Suboxone for opioid maintenance Neurontin for augmentation
[2018-12-22] MEDS: Buprenorphine Hydrochloride 2 mg SL SCH (18:36)
[2018-12-23] MEDS: Buprenorphine Hydrochloride 8 mg SL SCH (09:19)
[2018-12-23] MEDS: Buprenorphine Hydrochloride 2 mg SL SCH (18:24)
[2018-12-23] MEDS ORDERED: Hydrocortisone 1% Cream (30 GM) TOP PRN (21:29)
[2018-12-24 06:23] VITALS: BP 105/69; PULSE 82; TEMP 97.8
[2018-12-24] MEDS: Buprenorphine Hydrochloride 8 mg SL SCH (09:02)
--- NOTE | 2018-12-24 14:20 | PCM.PYCHPN ---
Psychiatric Progress Note - Psychiatric Progress Note Patient seen today, length of contact: 15 min Patient Chief Complaint: I am feeling little better.' Problems Identified/Issues Discussed: Patient was seen and evaluated, chart reviewed discussed with staff. Patient reports improvement in his mood, irritability and agitation. He reports some improvement in his depressed mood and feelings of hopelessness and helplessness. He reports that the medication is working and he feels more table than before. He denies any auditory hallucinations. He denies any withdrawal symptoms. He is taking medication but denies any side effects. Supportive therapy was given Medication Change: Yes Medical Record Reviewed: Yes Mental Status Examination - Cognitive Function Orientation: Person, Place, Situation, Time Memory: Intact Attention: WNL Concentration: Poor Fund of Knowledge: Poor - Mood Mood: Depressed, Anxious - Affect Affect: Constricted, Depressed - Speech Speech: Soft - Formal Thought Process Formal Thought Process: No Impairment - Suicidal Ideation Suicidal Ideation: No - Homicidal Ideation Homicidal Ideation: No Goal/Treatment Plan - Goal/Treatment Plan Need for Continued Stay: Remain at risks for inpatient hospitalization Progress Toward Problem(s) and Goals/Treatment Plan: Bipolar disorder mixed severe with psychotic features Sedative/hypnotic use disorder severe CBT Separation Supportive therapy and group therapy Trileptal for mood Trazodone for insomnia Hydroxyzine for anxiety Suboxone for opioid maintenance Neurontin for augmentation
--- NOTE | 2018-12-24 14:22 | PCM.PYCHDC ---
Mental Status Examination - Mental Status Examination Orientation: Person, Place, Situation, Time Memory: Intact Mood: Neutral Affect: Constricted Speech: Soft Attention: WNL Concentration: WNL Association: WNL Fund of Knowledge: WNL Formal Thought Process: No Impairment Suicidal Ideation: No Current Homicidal Ideation?: No Discharge Summary - Discharge Note Consultations:: List each consultation separately and include: 1. Reason for request. 2. Findings. 3. Follow-up Summary of Hospital Course include:: 1. Description of specific treatment plan utilized for patients during their course of treatmen. 2. Summarize the time- course for resolution of acute symptoms and/or regressed behaviors. 3. Describe issues identified and worked on during hospitalization. 4. Describe medication utilized. 5. Describe medical problems identified and treated. 6. Reassessment of suicide risk Summary of Hospital Course: Pt is a 63 year old male, who came to the hospital with increasingly depressed mood and paranoia, and suicidal ideation. Patient has a long history of bipolar disorder and history of multiple inpatient psychiatric hospitalizations. He was last discharged from [facility] last year. As per the patient he is currently involved with outpatient program in [facility]. Where he gets his Suboxone as well. Patient remained a poor historian. He was superficially cooperative but guarded about the details. He appears paranoid and delusional about the family. Patient reported that he has been feeling depressed for approximately one month, and that "this time it's different." Pt reported that he is depressed because he feels his brothers and sisters do not care about him after he raised them and cared for them since the age of 14. Patient explained that his siblings decided to sell his mother's home which he purchased and currently resides in. Pt reported he has to move out on February 04, 2019. Pt reported that he has a history of three SI attempts in the past with the most recent attempt being in 2018. Patient reported that he attempted to commit suicide by overdosing during all three attempts. Pt reported that before he commits suicide he would like to "make sure my grandchildren and my children receive their share of my properties and gomez then it'll time to go." Pt reports depressed mood, feelings of hopelessness and worthlessness. He also reports irritability, agitation, racing thoughts poor focus and poor concen tration. He appears somewhat paranoid and delusional however he denies any auditory or visual hallucinations. He also reports abusing prescribed Xanax. He reports that he is taking higher dose of Xanax daily from 2 to 4 mg. He denies any recent substance abuse. Past medical history None reported - Final Diagnosis (DSM 5) Condition upon Discharge: GOOD Disposition: HOME/ ROUTINE Follow-up Treatment Plan: Bipolar disorder mixed severe with psychotic features Sedative/hypnotic use disorder severe CBT Separation Supportive therapy and group therapy Trileptal for mood Trazodone for insomnia Hydroxyzine for anxiety Suboxone for opioid maintenance Neurontin for augmentation
[2018-12-25] MEDS ORDERED: Pneumococcal 23-Valent Vaccine IM ONE (10:00)
== END 2018-12-24 14:49 | disposition home or self-care (01) | DRG 430 ==
LOC: C.ER 11:50 → C.5E 15:37
PROVIDERS: ADMIT Psychiatry & Neurology Psychiatry; ATTEND Psychiatry & Neurology Psychiatry
PROC: GZ3ZZZZ Medication Management (ICD-10-PCS; principal; 2018-12-21)
PROC: GZHZZZZ Group Psychotherapy (ICD-10-PCS; 2018-12-21)
PROC: HZ89ZZZ Medication Management for Substance Abuse Treatment, Other Replacement Medication (ICD-10-PCS; 2018-12-21)
PROC: GZ56ZZZ Individual Psychotherapy, Supportive (ICD-10-PCS; 2018-12-21)
DX: F31.64 Bipolar disorder, current episode mixed, severe, with psychotic features (principal); F13.20 Sedative, hypnotic or anxiolytic dependence, uncomplicated; F41.9 Anxiety disorder, unspecified; G47.00 Insomnia, unspecified; R45.851 Suicidal ideations